=== PATIENT | male | born 1955 | race Caucasian/White ===

== ENCOUNTER 2017-03-03 06:16 | Emergency (ER) | payer BC ==
[2017-03-03 06:29] VITALS: BP 143/86
--- NOTE | 2017-03-03 07:46 | ED ---
Lower Extremity - HPI Summary HPI Summary: 61M presents with right knee pain s/p fall last night. He states he tripped in a hole last night. He states he may have dislocated his knee. He states he has been able to ambulate on it with some pain. He states that he hears some clicking when he walks. He denies any numbness or tingling. He denies any previous injury to the leg. He has been taking ibuprofen for his pain. He states the pain isn't bad unless he moves the leg. - History of Current Complaint Chief Complaint: EDExtremityLower Stated Complaint: FALL//RIGHT KNEE PAIN Time Seen by Provider: 03/03/17 06:35 Pain Intensity: 1 - Allergies/Home Medications Allergies/Adverse Reactions: Allergies Allergy/AdvReac Type Severity Reaction Status Date / Time No Known Allergies Allergy Verified 09/06/13 11:28 PMH/Surg Hx/FS Hx/Imm Hx Endocrine/Hematology History: Reports: Hx Diabetes Denies: Hx Sickle Cell Disease Cardiovascular History: Reports: Hx Hypertension - UNDER CONTROL WITH MEDICATION Respiratory History: Reports: Hx Sleep Apnea GI History: Reports: Hx Irritable Bowel History: Denies: Other Problems/Disorders Musculoskeletal History: Reports: Hx Arthritis - HIPS AND KNEES Sensory History: Reports: Hx Cataracts - RIGHT EYE, Hx Contacts or Glasses - GLASSES Denies: Hx Hearing Aid Opthamlomology History: Reports: Hx Cataracts - RIGHT EYE, Hx Contacts or Glasses - GLASSES Psychiatric History: Reports: Hx Depression - ON MEDICATION, WORKING WELL FOR PATIENT - Surgical History Hx Anesthesia Reactions: No Infectious Disease History: Denies: Traveled Outside the [place] in Last 30 Days - Family History Known Family History: Positive: Cardiac Disease - Social History Alcohol Use: Occasionally Substance Use Type: Reports: None Smoking Status (MU): Former Smoker Review of Systems Negative: Fever Negative: Chest Pain Negative: Shortness Of Breath Positive: Myalgia - right knee pain All Other Systems Reviewed And Are Negative: Yes Physical Exam Triage Information Reviewed: Yes Vital Signs On Initial Exam: Initial Vitals Temp Pulse Resp BP Pulse Ox 99 F 95 20 143/86 98 03/03/17 06:24 03/03/17 06:24 03/03/17 06:24 03/03/17 06:24 03/03/17 06:24 Vital Signs Reviewed: Yes Appearance: Positive: Well-Appearing Skin: Positive: Warm, Dry Head/Face: Positive: Normal Head/Face Inspection Eyes: Positive: Normal, Conjunctiva Clear Respiratory/Lung Sounds: Positive: Clear to Auscultation, Breath Sounds Present Cardiovascular: Positive: Normal, RRR Musculoskeletal: Positive: Limited @ - right knee due to pain, Edema Right - knee, Other - good pulses, capilary refill <2 secs, positive ballotment, negative anteroir drawer Diagnostics - Vital Signs Vital Signs Temp Pulse Resp BP Pulse Ox 03/03/17 06:24 99 F 95 20 143/86 98 - Laboratory Lab Statement: Any lab studies that have been ordered have been reviewed, and results considered in the medical decision making process. - Radiology knee Xray Interpretation: No Acute Changes - IMPRESSION: NO ACUTE OSSEOUS INJURY. IF SYMPTOMS PERSIST, RECOMMEND REPEAT IMAGING. Radiology Interpretation Completed By: Radiologist Lower Extremity Course/Dx - Course Course Of Treatment: 61M presents with right knee pain s/p fall last night. Thought dislocated it but on exam patella is midline. has been taking ibuprofen for the pain. states the joint has been popping. on exam postive ballotment, neg anteroir drawer. xray normal. will place in knee imbolizer and gave crutches and told to follow up with primary as may need to see ortho for possible ligament injury. patient understands and agrees with plan - Diagnoses Differential Diagnosis/HQI/PQRI: Positive: Contusion, Dislocation, Fracture ( Closed), Sprain, Strain Provider Diagnoses: Right knee pain Discharge - Discharge Plan Condition: Good Disposition: HOME Patient Education Materials: Knee Pain (ED) Referrals: Edward Arias MD [Primary Care Provider] - Additional Instructions: Take Tylenol or ibuprofen every 6 hours as needed for pain Apply ice, rest, elevate Keep brace on area Follow up with primary care physician within 5 days if no improvement may need to see ortho Return to ED if develop numbness, tingling, inability to move joint, or any new or worsening symptoms
--- NOTE | 2017-03-03 07:56 | RAD ---
HISTORY: Fall, knee pain COMPARISONS: November 20, 2005 VIEWS: 4, Frontal, lateral, axial, and oblique views of the right knee FINDINGS: BONE DENSITY: Normal. BONES: There is no displaced fracture. JOINTS: There is no arthropathy. There is no suprapatellar joint effusion or lipohemarthrosis. ALIGNMENT: There is no dislocation. SOFT TISSUES: Unremarkable. OTHER FINDINGS: None. IMPRESSION: NO ACUTE OSSEOUS INJURY. IF SYMPTOMS PERSIST, RECOMMEND REPEAT IMAGING.
== END 2017-03-03 08:28 | disposition home or self-care (01) ==
LOC: ED 06:16
DX: M25.561 Pain in right knee (principal)
CPT/HCPCS: 99282

== ENCOUNTER 2017-03-12 09:12 | Inpatient (IN) | payer BC ==
[2017-03-12] MEDS ORDERED: NS 0.9% 1000 ML*IV.FLUID IV ONE (11:14)
[2017-03-12] MEDS ORDERED: Albuterol/Ipratropium NEB.SOL* Albuterol 2.5 MG/Ipratropium 0.5 MG 3 ML INH ONE (11:15)
[2017-03-12] MEDS ORDERED: Azithromycin IV(*) 500 MG in NS 0.9% 250 ML* 250 ML IVPB ONE (11:16)
[2017-03-12 12:28] LABS: Hematocrit 46 % (42-52); Mean Corpuscular HGB Conc 33 g/dl (31-36); Mean Corpuscular Hemoglobin 28 pg (27-31); Mean Corpuscular Volume 87 fL (80-94); Mean Platelet Volume 9 um3 (7.4-10.4); Red Blood Count 5.29 10^6/ul (4.0-5.4); Red Cell Distribution Width 16 % (10.5-15); Venous Bicarbonate HCO3 18.4 mmol/L (24-28); White Blood Count 15.3 10^3/ul (3.5-10.8)
[2017-03-12 12:29] LABS: Add Diff/Slide Review? Slide Review Added; Comments Flag Yes
--- NOTE | 2017-03-12 12:32 | RAD ---
HISTORY: Right lower lobe rhonchi, fever, cough COMPARISONS: July 25, 2015 VIEWS:1: Single frontal portable view of the chest at 12:04 PM FINDINGS: LINES AND TUBES: None. CARDIOMEDIASTINAL SILHOUETTE: The cardiomediastinal silhouette is normal for portable technique. PLEURA: The costophrenic angles are sharp. No pleural abnormalities are noted. LUNG PARENCHYMA: The lung volumes are low. There is confluent alveolar opacification within the right lower lung and left midlung ABDOMEN: The upper abdomen is clear. There is no subphrenic gas. BONES AND SOFT TISSUES: No bone or soft tissue abnormalities are noted. IMPRESSION: MULTIFOCAL CONSOLIDATION. RECOMMEND FOLLOW-UP UNTIL RESOLUTION TO EXCLUDE UNDERLYING PULMONARY PARENCHYMAL PATHOLOGY.
[2017-03-12 12:44] LABS: Albumin 3.4 g/dL (3.2-5.2); BUN/Creatinine Ratio 26.1 (8-20); Calcium 9.9 mg/dL (8.6-10.3); EGFR African American 83.4 (>60); EGFR Non-African American 64.9 (>60); Globulin 4.1 g/dL (2-4); Potassium 4.7 mmol/L (3.5-5.0); Total Bilirubin 0.6 mg/dL (0.2-1.0); Total Protein 7.5 g/dL (6.4-8.9)
[2017-03-12] MEDS ORDERED: Dextrose 50% Syringe 50 ML* 25 GM/50 ML SYRINGE IV PUSH PRN (12:46)
[2017-03-12 12:49] LABS: Troponin I 0.2 ng/mL (<0.04)
[2017-03-12] MEDS ORDERED: Insulin REGULAR(*) 1 UNITS UNIT SUBCUT ONE (12:52)
[2017-03-12] MEDS ORDERED: Aspirin EC TAB* 325 MG PO ONE (12:55)
[2017-03-12 13:05] LABS: Immature Granulocytes 6 % (0-9); Myelocytes % 3 % (0-1); Neutrophil % 83 % (38-83); RBC Morphology Normal (Normal); Toxic Granulation 1+
[2017-03-12] MEDS ORDERED: Perflutren Prot Type A Micr (NF) 3 ML SDV IV ONE (14:05)
[2017-03-12 14:14] LABS: Urine Bacteria Absent (Absent); Urine Bilirubin Negative (Negative); Urine Glucose 3+(>=500 mg/dL) (Negative); Urine Nitrite Negative (Negative)
--- NOTE | 2017-03-12 15:28 | ECHO ---
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 Technical Comments: The study is technically limited due to patient body habitus. Definity was used for endocardial border delineation. Completed at 1515. The study was technically limited due to the patient's inability to lay in the left lateral decubitus position. Left Ventricle: The left ventricular chamber size is normal. Mild concentric left ventricular hypertrophy is observed. Global left ventricular wall motion and contractility are within normal limits. There is normal left ventricular systolic function. The estimated ejection fraction is 55-60%. There is no consistent Doppler evidence of clinically significant diastolic dysfunction. Left Atrium: The left atrial chamber size is normal. Right Ventricle: The right ventricular chamber size and systolic function are within normal limits. Right Atrium: The right atrial cavity size is normal. Aortic Valve: The aortic valve is trileaflet. There is aortic annular calcification.that is mild There is no evidence of aortic regurgitation. There is no evidence of aortic stenosis. Mitral Valve: The mitral valve leaflets appear normal. There is a trace of mitral regurgitation. There is no evidence of mitral stenosis. Tricuspid Valve: The tricuspid valve leaflets are normal. There is trace tricuspid regurgitation. Unable to estimate the right ventricular systolic pressure. Pulmonic Valve: The pulmonic valve appears normal. There is no evidence of pulmonic regurgitation. There is no pulmonic stenosis. Pericardium: There is no significant pericardial effusion. A pericardial fat pad is visualized. Aorta: The ascending aorta is not well visualized. There is no dilatation of the aortic arch. There is no dilation of the aortic root. Pulmonary Artery: The main pulmonary artery is not well visualized. Venous: The venous system is not well visualized. Contrast: Definity was used to optimize study. Intravenous contrast was used to enhance endocardial border definition. Conclusions The left ventricular chamber size is normal. Mild concentric left ventricular hypertrophy is observed. The estimated ejection fraction is 55-60%. There is normal left ventricular systolic function. Global left ventricular wall motion and contractility are within normal limits. The left atrial chamber size is normal. The right ventricular chamber size and systolic function are within normal limits. No significant valvular abnormalities noted. Unable to estimate the right ventricular systolic pressure. No prior studies available for comparison at time of interpretation. Measurements Name Value Normal Range RVIDd (AP) 2D 3.5 cm (0.9 - 2.6) RVDdMajor (2D) 3.6 cm (2.2 - 4.4) RAd ISD 4CH 5 cm (3.4 - 4.9) RA (A4C)W 3.4 cm (2.9 - 4.6) IVSd (2D) 1.3 cm (0.6 - 1) LVPWd (2D) 1.2 cm (0.6 - 1) LVIDd (2D) 4.2 cm (3.6 - 5.4) LVIDs (2D) 3.3 cm - LV FS (2D) 21 % (25 - 45) Aortic Annulus 2 cm (1.4 - 2.6) Ao root diameter (2D) 3.6 cm (2.1 - 3.5) Aortic arch 2.7 cm (1.8 - 3.4) Descending Ao 0.9 cm - LA dimension (AP) 2D 3.8 cm (2.3 - 3.8) LAd ISD 4CH 6.2 cm (2.9 - 5.3) LA ISD 4CH W 4.5 cm (2.5 - 4.5) Name Value Normal Range MV E-wave Vmax 0.9 m/sec - MV deceleration time 108 msec - MV A-wave Vmax 1 m/sec - MV E:A ratio 0.91 ratio - LV septal e' Vmax 0.12 m/sec - LV lateral e' Vmax 0.14 m/sec - LV E:e' septal ratio 7.5 ratio - LV E:e' lateral ratio 6.42 ratio - Name Value Normal Range AV Vmax 2.6 m/sec - AV VTI 39.1 cm - AV peak gradient 27.66 mmHg - AV mean gradient 12.68 mmHg - LVOT Vmax 1.6 m/sec - LVOT VTI 26.1 cm - LVOT peak gradient 10.56 mmHg - LVOT mean gradient 4.67 mmHg - Name Value Normal Range PV Vmax 1 m/sec - PV peak gradient 3.69 mmHg -
[2017-03-12] MEDS: Heparin VIAL(*) 5000 UNITS/ML VIAL (FIVE THOUSAND) SUBCUT SCH ×2 (15:49→22:29)
[2017-03-12] MEDS: NS 0.9% 1000 ML* 1,000 ML IV SCH (15:57)
[2017-03-12] MEDS: Insulin LISPRO* 1 UNITS UNIT SUBCUT SCH (17:47)
--- NOTE | 2017-03-12 19:11 | HP ---
CC: Dr. Arias HISTORY AND PHYSICAL: DATE OF ADMISSION: 03/12/17 PCP: Dr. Arias. CHIEF COMPLAINT: Cough, shortness of breath. HISTORY OF PRESENT ILLNESS: Mr. Fairbanks is a 61-year-old male with past medical history of hypertens ion; diabetes; VALENTINO, on CPAP, who presents to the hospital with cough, sweats, nausea. 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 He states he came to the [facility] at that point. In the emergency department, had a knee x-ray that showed no fracture and was se nt home. He states that during the hospital, he started to feel unwell and then when he got home, h e became worse. He states he felt nausea, headache, sweats. He has not taken his temperature at ho me, but he has reported shaking chills as well. He has felt progressively weak and has been coughin g. He states he has had very little p.o. intake. He has been trying to drink a little bit. He has had almost no food in the past week and a half. He reports no appetite. He states his cough is pr oductive of sputum, sometimes it is yellow, other times, he has noticed a blood tinge and he states one time there was some hard black sputum. He reports shortness of breath as well and has been havin g increasing dyspnea on exertion. He reports chest pain, but only with coughing. He has had nausea , but no emesis. Denies any diarrhea or constipation. Reports some vague periumbilical pain that t hat seems to have come and go. Due to his progressive symptoms, he decided to come to the hospital today. PAST MEDICAL HISTORY: Hypertension; diabetes; VALENTINO, on CPAP; anxiety. PAST SURGICAL HISTORY: Right cataract removal. HOME MEDICATIONS: Doses need to be confirmed. The patient is on: 1. Metformin. 2. Lisinopril. 3. Hydrocodone/acetaminophen. 4. Hydrochlorothiazide. 5. Glipizide. 6. Paxil. ALLERGIES: The patient reports no known drug allergies. FAMILY HISTORY: Significant for father with macular degeneration, mother with COPD. SOCIAL HISTORY: The patient is a former [id number]-dajd smoker, quit in 1980. The patient reports hav ing 1 to 2 drinks every other night. Denies any illicit drug use. Lives at home with his girlfrien Alicia steele. PHYSICAL EXAMINATION GENERAL: The patient is a middle-aged, male, lying in bed, in mild respiratory distress. VITAL SIGNS: On admission, temperature 96.5, heart rate of 124, respiratory rate of 20, O2 saturati on 87% on room air, blood pressure 159/62. HEENT: Pupils equal, round, reactive to light and accommodation. Anicteric sclerae. Moist mucous membranes. LUNGS: With good air movement bilaterally, rales in bilateral lower lobes. No rhonchi appreciated. Tachypnea. CARDIOVASCULAR: Tachycardic. No murmurs, gallops, or rubs. ABDOMEN: Soft, nondistended, and mild tenderness to palpation diffusely. EXTREMITIES: No cyanosis, clubbing, or edema. NEURO: The patient is alert and oriented x3. No focal neurological deficits. SKIN: The patient with ecchymosis over the medial aspect of the right knee. DIAGNOSTIC STUDIES/LAB DATA: White blood cell count of 15.3, hematocrit of 46, platelets of 262. INR of 1.1. Sodium 127, potassium 4.7, chloride 92, carbon dioxide of 20, BUN of 30, creatinine of 1.15, glucose of 350. LFTs within normal limits. Troponin of 0.20. EKG personally reviewed shows sinus tachycardia, right bundle branch block. Chest x-ray shows multifocal consolidation. Lactic acid is pending at this time. ASSESSMENT AND PLAN: Sepsis secondary to community-acquired pneumonia in a 61-year- old male with p ast medical history of hypertension; diabetes; obstructive sleep apnea, on CPAP. 1. Sepsis with acute hypoxic respiratory failure. The patient is requiring 3 L of oxygen. He has consolidation on chest x-ray. He has received ceftriaxone and azithromycin in the emergency departm ent. We will continue this for now. His lactic acid is pending at this time. We will check urine strep and legionella antigens. Sputum cultures ordered and pending. Flu swab is also pending at th is time. The patient received a liter of IV fluids in the emergency department. We will continue 1 25 cc per hour. We will keep a close eye on the patient's heart rate. 2. Troponin elevation. Likely demand mediated due to the patient's sepsis. We will continue to tr end for now. I have ordered any echocardiogram to assess for any wall motion abnormalities. We susie l start the patient on a daily aspirin for now just in case, although it seems most likely this is d emand mediated. 3. Diabetes. Blood glucoses are elevated right now at 350. He has a mild anion gap; however, this could be due to lactic acidosis, this has not returned yet. We will give the patient 10 units of r egular insulin for now and we will keep a close eye on his blood sugars. We will continue Humalog i nsulin sliding scale. Hold his home metformin and glipizide for now. 4. Hypertension. Blood pressures are slightly in the high side rate now, but for the moment, we wi ll hold his home lisinopril and HCTZ. 5. DVT prophylaxis. Heparin subcu. 6. Code status. The patient is a full code. The patient's surrogate decision maker is his girlfri end, Alicia Dhillon, phone #[phone]. TIME SPENT: Total time spent on this admission 40 minutes, more than half the time spent face-to-fa ce with the patient in counseling and coordinating care. [id number]/CPS #: [id number]
[2017-03-12] MEDS: Acetaminophen TAB* 325 MG PO PRN (22:28)
[2017-03-13] MEDS: NS 0.9% 1000 ML* 1,000 ML IV SCH (05:28)
[2017-03-13] MEDS: Heparin VIAL(*) 5000 UNITS/ML VIAL (FIVE THOUSAND) SUBCUT SCH ×3 (05:30→22:27)
[2017-03-13 06:54] LABS: Hematocrit 42 % (42-52); Hemoglobin 13.8 g/dl (14.0-18.0); Mean Corpuscular HGB Conc 33 g/dl (31-36); Mean Corpuscular Hemoglobin 29 pg (27-31); Mean Corpuscular Volume 87 fL (80-94); Mean Platelet Volume 9 um3 (7.4-10.4); Red Blood Count 4.83 10^6/ul (4.0-5.4); Red Cell Distribution Width 16 % (10.5-15); White Blood Count 12.4 10^3/ul (3.5-10.8)
[2017-03-13 06:56] LABS: BUN/Creatinine Ratio 29.5 (8-20); Calcium 8.8 mg/dL (8.6-10.3); EGFR African American 113.6 (>60); EGFR Non-African American 88.3 (>60); Potassium 4.3 mmol/L (3.5-5.0)
[2017-03-13 06:58] LABS: Add Diff/Slide Review? Slide Review Added; Comments Flag Yes
--- NOTE | 2017-03-13 07:31 | PN ---
Subjective Date of Service: 03/13/17 Interval History: Fever overnight, tachycardia improved, remains on 6L. Says he is feeling a bit better this morning. Less cough, did feel febrile overnight. Breathing easier, currently on CPAP. Says he and his GF were down in a campground in [place], [place] last week, swam in public pool. Family History: Unchanged from Admission Social History: Unchanged from Admission Past Medical History: Unchanged from Admission Objective Active Medications: Acetaminophen (Tylenol Tab*) 650 mg PO Q4H PRN Aspirin (Aspirin Low Dose Tab*) 81 mg PO DAILY JEANETH Dextrose (D50w Syringe 50 Ml*) 12.5 gm IV PUSH .FOR FS < 60 - SS PRN Heparin Sodium (Porcine) (Heparin Vial(*)) 5,000 units SUBCUT Q8HR JEANETH Sodium Chloride (Ns 0.9% 1000 Ml*) 1,000 mls @ 125 mls/hr IV PER RATE JEANETH Ceftriaxone Sodium 1,000 mg/ (Sodium Chloride) 50 mls @ 200 mls/hr IVPB Q24H JEANETH Azithromycin 500 mg/ Sodium (Chloride) 250 mls @ 250 mls/hr IVPB Q24H JEANETH Insulin Human Lispro (Humalog*) 0 - 15 units SUBCUT AC JEANETH Vital Signs 03/12/17 03/12/17 03/12/17 14:00 14:30 15:00 Temperature Pulse Rate 121 119 119 Respiratory 26 38 25 Rate Blood Pressure 164/84 184/94 (mmHg) O2 Sat by Pulse 89 92 95 Oximetry 03/12/17 03/12/17 03/12/17 15:47 15:48 20:00 Temperature 98.3 F Pulse Rate 122 Respiratory 22 22 34 Rate Blood Pressure 177/90 (mmHg) O2 Sat by Pulse 91 94 Oximetry 03/12/17 03/13/17 03/13/17 20:30 00:09 04:38 Temperature 102.4 F 99.1 F 98.4 F Pulse Rate 113 94 95 Respiratory 34 20 20 Rate Blood Pressure 144/79 153/82 152/94 (mmHg) O2 Sat by Pulse 95 94 96 Oximetry Oxygen Devices in Use Now: CPAP/BiPAP Appearance: Middle-aged, M, laying in bed in NAD Eyes: No Scleral Icterus Ears/Nose/Mouth/Throat: Mucous Membranes Moist Neck: NL Appearance and Movements; NL JVP, Trachea Midline Respiratory: Symmetrical Chest Expansion and Respiratory Effort, - - Mild rales in bases, otherwise clear Cardiovascular: NL Sounds; No Murmurs; No JVD, RRR Abdominal: NL Sounds; No Tenderness; No Distention Lymphatic: No Cervical Adenopathy Extremities: No Edema Skin: No Rash or Ulcers Neurological: Alert and Oriented x 3 Result Diagrams: 03/13/17 06:11 03/13/17 06:11 Microbiology and Other Data: Microbiology 03/12/17 13:55 Legionella Urinary Antigen - Final Urine Positive Legionella Antigen Streptococcus pneumoniae Ag Screen - Final Negative S. pneumo Antigen Assess/Plan/Problems-Billing Assessment: Sepsis, acute hypoxic respiratory failure 2/2 Legionella PNA in a 61 yo M with hx of HTN, DM, VALENTINO on CPAP - Patient Problems (1) Acute respiratory failure with hypoxia Current Visit: Yes Comment: 2/2 PNA, wean O2 as able (2) Legionella pneumonia Current Visit: Yes Comment: sepsis. Positive urine antigen. Will switch to Levaquin monotherapy. Leukocytosis improving. Continue to wean O2 as able. (3) Elevated troponin Current Visit: Yes Comment: Resolved. Likely demand mediated. No WMA on echo. Stop ASA (4) Diabetes Current Visit: Yes Comment: BGs elevated. Will start Lantus 12 units daily. Continue HISS. (5) HTN (hypertension) Current Visit: Yes Comment: Resume home Lisinopril. Hold HCTZ. (6) DVT prophylaxis Current Visit: Yes Comment: HSQ Status and Disposition: Inpatient for pneumonia, hypoxic respiratory failure
[2017-03-13] MEDS ORDERED: Insulin GLARGINE(*) 1 UNITS UNIT SUBCUT SCH (08:00)
[2017-03-13] MEDS: Acetaminophen TAB* 325 MG PO PRN ×2 (08:37→23:12)
[2017-03-13] MEDS: Insulin LISPRO* 1 UNITS UNIT SUBCUT SCH ×3 (08:37→17:10)
[2017-03-13] MEDS: Tamsulosin CAP* 0.4 MG PO SCH (08:37)
[2017-03-13] MEDS: Lisinopril TAB* 10 MG PO SCH (08:37)
[2017-03-13] MEDS: Levofloxacin 750 MG IVPREMIX(* 750 MG/150 ML BAG IVPB SCH (08:38)
[2017-03-13] MEDS ORDERED: Aspirin Low Dose CHEW TAB* 81 MG PO SCH (09:00)
[2017-03-13] MEDS: Morphine INJ* 4 MG/ML 1 ML SYRINGE IV PRN ×2 (11:57→17:10)
[2017-03-13] MEDS: Ondansetron INJ* 2 MG/ML VIAL IV PRN (11:57)
[2017-03-13] MEDS ORDERED: Azithromycin IV(*) 500 MG in NS 0.9% 250 ML* 250 ML IVPB SCH (12:00)
[2017-03-13] MEDS ORDERED: cefTRIAXone VIAL(*) 1,000 MG in NS 0.9% 50 ML* 50 ML IVPB SCH (13:00)
[2017-03-13] MEDS ORDERED: Insulin LISPRO* 1 UNITS UNIT SUBCUT ONE (22:20)
[2017-03-13] MEDS: PARoxetine HCL TAB* 40 MG PO SCH (22:26)
[2017-03-14] MEDS: Heparin VIAL(*) 5000 UNITS/ML VIAL (FIVE THOUSAND) SUBCUT SCH ×3 (05:28→21:19)
[2017-03-14] MEDS: Levofloxacin 750 MG IVPREMIX(* 750 MG/150 ML BAG IVPB SCH (07:59)
[2017-03-14] MEDS: Insulin LISPRO* 1 UNITS UNIT SUBCUT SCH ×3 (08:00→17:23)
[2017-03-14] MEDS: Lisinopril TAB* 10 MG PO SCH (08:01)
--- NOTE | 2017-03-14 08:07 | PN ---
Subjective Date of Service: 03/14/17 Interval History: Patient seen this morning. Reports overall he thinks he is improving. Still with headache, fatigue but improving. Cough resolving. Denies SOB at rest, still some with exertion. Still having loose stools. Family History: Unchanged from Admission Social History: Unchanged from Admission Past Medical History: Unchanged from Admission Objective Active Medications: Acetaminophen (Tylenol Tab*) 650 mg PO Q4H PRN Dextrose (D50w Syringe 50 Ml*) 12.5 gm IV PUSH .FOR FS < 60 - SS PRN Heparin Sodium (Porcine) (Heparin Vial(*)) 5,000 units SUBCUT Q8HR JEANETH Lactated Ringer's (Lactated Ringers 1000 Ml Bag*) 1,000 mls @ 125 mls/hr IV PER RATE JEANETH Levofloxacin/Dextrose (Levaquin 750 Mg Ivpremix(*)) 750 mg in 150 mls @ 100 mls /hr IVPB Q24H JEANETH Insulin Glargine (Lantus(*)) 20 units SUBCUT Q24H JEANETH Insulin Human Lispro (Humalog*) 0 - 15 units SUBCUT AC JEANETH Lisinopril (Prinivil Tab*) 40 mg PO DAILY JEANETH Morphine Sulfate (Morphine Inj (Syringe)*) 4 mg IV Q4H PRN Ondansetron HCl (Zofran Inj*) 4 mg IV Q4H PRN Paroxetine HCl (Paxil Tab*) 40 mg PO BEDTIME JEANETH Tamsulosin HCl (Flomax Cap*) 0.4 mg PO DAILY [facility] Vital Signs 03/13/17 03/13/17 03/13/17 08:09 11:57 12:12 Temperature 98.1 F Pulse Rate 100 94 Respiratory 24 20 22 Rate Blood Pressure 152/89 140/69 (mmHg) O2 Sat by Pulse 91 96 Oximetry 03/13/17 03/13/17 03/13/17 12:57 15:21 17:10 Temperature 98.5 F Pulse Rate 98 Respiratory 18 20 20 Rate Blood Pressure 151/89 (mmHg) O2 Sat by Pulse 92 Oximetry 03/13/17 03/13/17 03/13/17 18:10 20:00 20:03 Temperature 98.4 F Pulse Rate 98 Respiratory 18 20 20 Rate Blood Pressure 158/88 (mmHg) O2 Sat by Pulse 100 100 Oximetry 03/13/17 03/14/17 23:41 03:25 Temperature 97.8 F 97.6 F Pulse Rate 94 92 Respiratory 16 20 Rate Blood Pressure 169/95 164/98 (mmHg) O2 Sat by Pulse 96 95 Oximetry Oxygen Devices in Use Now: CPAP/BiPAP Appearance: Middle-aged, M, laying in bed in NAD Eyes: No Scleral Icterus Ears/Nose/Mouth/Throat: - - Dry MM Neck: NL Appearance and Movements; NL JVP Respiratory: Symmetrical Chest Expansion and Respiratory Effort, - - Minimal lower lung field rales B/L Cardiovascular: NL Sounds; No Murmurs; No JVD, RRR Abdominal: NL Sounds; No Tenderness; No Distention Lymphatic: No Cervical Adenopathy Extremities: No Edema Skin: No Rash or Ulcers Neurological: Alert and Oriented x 3 Result Diagrams: 03/13/17 06:11 03/13/17 06:11 Assess/Plan/Problems-Billing Assessment: Sepsis, acute hypoxic respiratory failure 2/2 Legionella PNA in a 61 yo M with hx of HTN, DM, VALENTINO on CPAP - Patient Problems (1) Acute respiratory failure with hypoxia Current Visit: Yes Comment: 2/2 PNA, wean O2 as able (2) Legionella pneumonia Current Visit: Yes Comment: sepsis. Positive urine antigen. Continue Levaquin. CBC pending. Continue to wean O2 as able. See what he is satting off CPAP. (3) Elevated troponin Current Visit: Yes Comment: Resolved. Likely demand mediated. No WMA on echo. No events on tele, D/C. (4) Diabetes Current Visit: Yes Comment: BGs elevated still, increase Lantus to 20 units daily. Continue HISS. (5) HTN (hypertension) Current Visit: Yes Comment: Continue home Lisinopril. Hold HCTZ. (6) DVT prophylaxis Current Visit: Yes Comment: HSQ Status and Disposition: Inpatient for pneumonia, hypoxic respiratory failure
[2017-03-14] MEDS: Insulin GLARGINE(*) 1 UNITS UNIT SUBCUT SCH (08:28)
[2017-03-14] MEDS: Tamsulosin CAP* 0.4 MG PO SCH (08:29)
[2017-03-14 09:26] LABS: Hematocrit 40 % (42-52); Hemoglobin 13.1 g/dl (14.0-18.0); Mean Corpuscular HGB Conc 33 g/dl (31-36); Mean Corpuscular Hemoglobin 28 pg (27-31); Mean Corpuscular Volume 85 fL (80-94); Mean Platelet Volume 9 um3 (7.4-10.4); Red Blood Count 4.64 10^6/ul (4.0-5.4); Red Cell Distribution Width 16 % (10.5-15); White Blood Count 7.1 10^3/ul (3.5-10.8)
[2017-03-14 09:27] LABS: Add Diff/Slide Review? Manual Diff Added; Comments Flag Yes
[2017-03-14 09:45] LABS: Eosinophils % 2 % (0-6); Immature Granulocytes 2 % (0-9); Neutrophil % 81 % (38-83); RBC Morphology Normal (Normal)
[2017-03-14 10:04] LABS: BUN/Creatinine Ratio 27.8 (8-20); Calcium 8.6 mg/dL (8.6-10.3); EGFR African American 143.2 (>60); EGFR Non-African American 111.4 (>60)
[2017-03-14 10:35] LABS: Potassium 5.4 mmol/L (3.5-5.0)
[2017-03-14] MEDS: Ondansetron INJ* 2 MG/ML VIAL IV PRN (11:52)
[2017-03-14] MEDS: PARoxetine HCL TAB* 40 MG PO SCH (21:19)
[2017-03-15] MEDS ORDERED: Insulin LISPRO* 1 UNITS UNIT SUBCUT ONE (01:50)
[2017-03-15] MEDS: Heparin VIAL(*) 5000 UNITS/ML VIAL (FIVE THOUSAND) SUBCUT SCH ×3 (05:13→21:36)
[2017-03-15] MEDS: Levofloxacin 750 MG IVPREMIX(* 750 MG/150 ML BAG IVPB SCH (07:56)
[2017-03-15] MEDS: Tamsulosin CAP* 0.4 MG PO SCH (07:56)
[2017-03-15] MEDS: Lisinopril TAB* 10 MG PO SCH (07:56)
[2017-03-15] MEDS: Insulin LISPRO* 1 UNITS UNIT SUBCUT SCH ×3 (07:57→18:10)
[2017-03-15] MEDS: Insulin GLARGINE(*) 1 UNITS UNIT SUBCUT SCH (07:58)
[2017-03-15 08:17] LABS: BUN/Creatinine Ratio 23.3 (8-20); Calcium 8.5 mg/dL (8.6-10.3); EGFR African American 140.9 (>60); EGFR Non-African American 109.6 (>60); Potassium 4.4 mmol/L (3.5-5.0)
--- NOTE | 2017-03-15 10:12 | PN ---
Subjective Date of Service: 03/15/17 Interval History: Patient seen this morning. Overall says he is feeling better. Was off O2 when I saw him but stated he had just taken it off, has been on 4L. Minimal cough. Appetite still poor but slowly returning. Family History: Unchanged from Admission Social History: Unchanged from Admission Past Medical History: Unchanged from Admission Objective Active Medications: Acetaminophen (Tylenol Tab*) 650 mg PO Q4H PRN Dextrose (D50w Syringe 50 Ml*) 12.5 gm IV PUSH .FOR FS < 60 - SS PRN Heparin Sodium (Porcine) (Heparin Vial(*)) 5,000 units SUBCUT Q8HR JEANETH Lactated Ringer's (Lactated Ringers 1000 Ml Bag*) 1,000 mls @ 125 mls/hr IV PER RATE JEANETH Levofloxacin/Dextrose (Levaquin 750 Mg Ivpremix(*)) 750 mg in 150 mls @ 100 mls /hr IVPB Q24H JEANETH Insulin Glargine (Lantus(*)) 20 units SUBCUT Q24H JEANETH Insulin Human Lispro (Humalog*) 0 - 15 units SUBCUT AC JEANETH Lisinopril (Prinivil Tab*) 40 mg PO DAILY JEANETH Morphine Sulfate (Morphine Inj (Syringe)*) 4 mg IV Q4H PRN Ondansetron HCl (Zofran Inj*) 4 mg IV Q4H PRN Paroxetine HCl (Paxil Tab*) 40 mg PO BEDTIME JEANETH Tamsulosin HCl (Flomax Cap*) 0.4 mg PO DAILY [facility] Vital Signs 03/14/17 03/14/17 03/14/17 15:32 20:00 23:51 Temperature 97.5 F 97.5 F Pulse Rate 97 93 Respiratory 18 18 16 Rate Blood Pressure 145/81 157/89 (mmHg) O2 Sat by Pulse 97 97 93 Oximetry 03/15/17 07:39 Temperature 98.8 F Pulse Rate 91 Respiratory 16 Rate Blood Pressure 152/86 (mmHg) O2 Sat by Pulse 95 Oximetry Oxygen Devices in Use Now: Nasal Cannula Appearance: Middle-aged, M, sitting in chair in NAD Eyes: No Scleral Icterus Ears/Nose/Mouth/Throat: Mucous Membranes Moist Neck: NL Appearance and Movements; NL JVP Respiratory: Symmetrical Chest Expansion and Respiratory Effort, - - LLL rales, diminished BS in RLL field Cardiovascular: NL Sounds; No Murmurs; No JVD, RRR Abdominal: NL Sounds; No Tenderness; No Distention Lymphatic: No Cervical Adenopathy Extremities: - - R knee with ecchymosis on medial aspect, some asymmetry in quad muscles B/L, difficulty with extension Skin: No Rash or Ulcers Neurological: Alert and Oriented x 3 Result Diagrams: 03/14/17 09:08 03/15/17 07:26 Assess/Plan/Problems-Billing Assessment: Sepsis, acute hypoxic respiratory failure 2/2 Legionella PNA in a 61 yo M with hx of HTN, DM, VALENTINO on CPAP - Patient Problems (1) Acute respiratory failure with hypoxia Current Visit: Yes Comment: 2/2 PNA, wean O2 as able (2) Legionella pneumonia Current Visit: Yes Comment: sepsis. Positive urine antigen. Continue Levaquin (Day 4 of ABx). Continue to wean O2 as able, has been on 4L. Will d/c IVF today. (3) Elevated troponin Current Visit: Yes Comment: Resolved. Likely demand mediated. No WMA on echo. No events on tele, D/C. (4) Diabetes Current Visit: Yes Comment: BGs elevated still, resume home Metformin. Continue Lantus to 20 units daily. Continue HISS. Hold on Glipizide until taking more reliable PO. (5) HTN (hypertension) Current Visit: Yes Comment: Continue home Lisinopril. Hold HCTZ. (6) DVT prophylaxis Current Visit: Yes Comment: HSQ Status and Disposition: Inpatient for pneumonia, hypoxic respiratory failure
[2017-03-15] MEDS ORDERED: metFORMIN* 850 MG TAB PO SCH (11:00)
[2017-03-15] MEDS ORDERED: Hemorrhoidal OINT PR PRN (12:25)
[2017-03-15] MEDS: metFORMIN* 850 MG TAB PO SCH ×2 (12:33→18:10)
[2017-03-15] MEDS: Acetaminophen TAB* 325 MG PO PRN (14:09)
--- NOTE | 2017-03-15 14:29 | PN ---
Progress Note - Progress Note SOAP: Subjective: []See dictated consult: Patient will fall and twisting of the right knee . Xrays negative for bony abnormality. He heard a pop at the time of his injury and has been unable to actively extend right knee since. Pain is minimal at this time. Objective: []Right knee: Moderate ecchymosis distal quad and medial knee. minimal tenderness medially. +palpable defect of the distal quadriceps tendon. He is unable to do an active straight leg raise or actively extend his knee. neuro intact distally Calf is non tender xays of knee 03/03/17 negative for fracture unable to obtain MRI on this admission Assessment: []Quadriceps tendon rupture right knee based on clinical evaluation Plan: []Discharge when medically stable Straight knee immobilizer WBAT RLE MRI right knee to evaluate extent of Quadriceps rupture follow up with Dr. Eduardo after MRI Surgical repair to be scheduled when medically stable
[2017-03-15] MEDS: PARoxetine HCL TAB* 40 MG PO SCH (21:36)
--- NOTE | 2017-03-15 21:52 | CONS ---
ORTHOPEDIC CONSULTATION: DATE OF ADMISSION: 03/12/17 DATE OF CONSULTATION: ATTENDING PROVIDER: Yannick Carlton MD ATTENDING ORTHOPEDIC SURGEON: Jose Eduardo MD CHIEF COMPLAINT: Right knee pain, inability to actively extend knee. HISTORY OF PRESENT ILLNESS: The patient is 61-year-old male with a past history of hypertension, diabetes, obstructive sleep apnea, and recent diagnosis of legionella pneumonia, was admitted for the above on 03/12/17. The patient was working on his truck on 03/03/17 when slipped and fell twisting the right knee. He states he heard an audible pop and had pain to the distal medial aspect of his thigh. He has had ongoing difficulty with motion of his knee with noted swelling and ecchymosis to the medial aspect of the knee. He has been improving on the antibiotics. However, according to Dr. Carlton, he will require about 2 more weeks of oral antibiotics therapy for his pneumonia. Apparently, due to his current admission diagnosis, MRI of the knee cannot be obtained at this hospital admission. PAST MEDICAL HISTORY: As above, hypertension; diabetes; obstructive sleep apnea , on CPAP; anxiety. PAST SURGICAL HISTORY: He has had cataract surgery on the right eye. HOME MEDICATIONS: 1. Metformin. 2. Lisinopril. 3. Hydrochlorothiazide. 4. Glipizide. 5. Paxil. 6. He is also currently on levofloxacin for his pneumonia. 7. Currently, on heparin for DVT prophylaxis. ALLERGIES: No known drug allergies. FAMILY HISTORY: Mother with a history of COPD. Father with macular degeneration. SOCIAL HISTORY: The patient quit smoking in 1980. He does drink 1 to 2 alcoholic beverages every night. He denies use of illicit drugs and lives with his girlfriend. PHYSICAL EXAM: Vital Signs: Stable. He is afebrile. Most recent labs show his white count to be down to 7.1, hemoglobin 13.1, hematocrit 40, APTT is 31.3 , INR 1.10. Plain films of the right knee obtained revealed no obvious bony abnormality, fracture, dislocation. X-ray that were done on 03/03/17. Orthopedic physical examination, the patient is a pleasant and cooperative. He is alert and oriented x3, sitting in recliner chair, out of bed. He denies current shortness of breath, chest pain, or palpitations. Examination limited to the right lower extremity reveals moderate ecchymosis to the medial aspect of the right knee. There is no calf tenderness. His gross neurovascular status is intact. He has active dorsiflexion and plantar flexion of the ankle. He has active flexion of the knee, but does not have active extension. He is unable to perform and active straight leg raise on the right. He has full active straight leg raise. Flexion and extension of the left knee. IMPRESSION: Quadriceps tendon rupture based on clinical exam of the right knee. PLAN: I spoke with Dr. Carlton again who states he will likely be discharged tomorrow, 03/16/17, to home with an additional 10 to 14 days of oral antibiotics for his current pneumonia. The patient does have a postoperative knee mobilizer, which his significant other will bring in today. I recommend he wear this for ambulation and may bear weight as tolerated on the right lower extremity with the brace. The patient will ultimately need an MRI to further evaluate the extent of his tear and likely surgical repair will be necessary. I will discuss the current case with Dr. Eduardo and it will need to be coordinated for him to have an MRI of his right as an outpatient with evaluation and followup with Dr. Eduardo and likely surgical repair of the tendon. CESAR LEE We will coordinate early MRI and follow-up, as quadriceps tendon repairs have best results if repaired surgically acutely. We will consult the patient's PCP and anesthesia regarding appropriate timing in the setting [place] [id number]/[facility] #: [id number] HOSPITALNoah
[2017-03-16] MEDS: Heparin VIAL(*) 5000 UNITS/ML VIAL (FIVE THOUSAND) SUBCUT SCH ×2 (06:50→15:30)
[2017-03-16 07:52] LABS: BUN/Creatinine Ratio 18.7 (8-20); Blood Urea Nitrogen 14 mg/dL (6-24); CO2 Carbon Dioxide 21 mmol/L (22-32); Calcium 8.4 mg/dL (8.6-10.3); Chloride 100 mmol/L (101-111); EGFR African American 136.6 (>60); EGFR Non-African American 106.2 (>60); Glucose 276 mg/dL (70-100); Sodium 130 mmol/L (133-145)
[2017-03-16] MEDS: Insulin GLARGINE(*) 1 UNITS UNIT SUBCUT SCH (08:55)
[2017-03-16] MEDS: Insulin LISPRO* 1 UNITS UNIT SUBCUT SCH ×3 (08:56→17:46)
[2017-03-16] MEDS ORDERED: Pneumococcal Vac Polyvalent* 0.5 ML VIAL IM ONE (09:00)
[2017-03-16] MEDS: Levofloxacin 750 MG IVPREMIX(* 750 MG/150 ML BAG IVPB SCH (09:20)
[2017-03-16] MEDS: Tamsulosin CAP* 0.4 MG PO SCH (09:23)
[2017-03-16] MEDS: Lisinopril TAB* 10 MG PO SCH (09:23)
[2017-03-16] MEDS: metFORMIN* 850 MG TAB PO SCH ×3 (09:23→17:45)
--- NOTE | 2017-03-16 14:07 | PN ---
Progress Note - Progress Note SOAP: Subjective: []Patient seen OOB getting dressed. Hoping to be discharged later today. Knee minimally painful. "It just does not work". Objective: [] Vital Signs Temp 97.8 F 03/16/17 07:37 Pulse 95 03/16/17 07:37 Resp 14 03/16/17 08:00 BP 136/95 03/16/17 07:37 Pulse Ox 96 03/16/17 08:00 Intake & Output 03/15/17 03/16/17 03/16/17 18:59 06:59 18:59 Intake Total 1452 0 Output Total 300 Balance 1152 0 Intake: IV Fluids 942 LR 942 IVPB 150 ABX - LEVOFLOXACIN 150 Oral 360 0 Output: Urine 300 Other: # Bowel Movements 2 # Voids 2 Right knee ecchymosis and defect distal quad unchanged, non tender, calf soft and non tender Knee immobilizer placed on Right LE Assessment: [] distal quadriceps tendon rupture right knee, MRI pending Plan: []Patient to be discharged by medical service today Patient to contact PCP/ Dr. Eduardo office for MRI right knee and follow up with Dr. Eduardo within 1 week. Will need surgical repair of the right quad tendon as an outpatient May WBAT RLE with brace in place
[2017-03-16 16:10] VITALS: BP 132/77
--- NOTE | 2017-03-17 14:35 | DS ---
DISCHARGE SUMMARY: DATE OF ADMISSION: 03/12/17 DATE OF DISCHARGE: 03/16/17 ADMISSION DIAGNOSES: 1. Sepsis with acute hypoxic respiratory failure. 2. Troponin elevation. 3. Diabetes. 4. Hypertension. DISCHARGE DIAGNOSES: 1. Sepsis with acute hypoxic respiratory failure. 2. Troponin elevation. 3. Diabetes. 4. Hypertension. 5. Legionella pneumonia. HOSPITAL COURSE: The patient is a 61-year-old gentleman, who presented to [facility] with cough and shortness of breath. Please see H and P for further details. The patient was admitted with respiratory failure, requiring significant supplemental oxygen at 6 L nasal cannula. Eventually, they were able to wean him off oxygen through his hospital course. His urine legionella antigen came back positive. He was switched from his initial antibiotic therapy to Levaquin. His troponin which was initially slightly elevated at 0.20, came down to 0.01, and his echo showed no wall motion abnormalities. His sugars were quite elevated while here and Lantus insulin was initiated. It did come down some- what to below 200 and he notes that he has been high for some time but has not followed up with his golf ball winder, Dr. Mendez. By 03/16/17, the patient felt considerably better and was anxious to go home. It should also be noted that on March 15, he was seen in consult by Ortho because of significant pain in his right knee. He was given a knee immobilizer and told to follow up with Ortho in 1 to 2 weeks. PHYSICAL EXAMINATION: On the date of discharge, well-developed, well-nourished gentleman, sitting up in bed, in no acute distress. Vital Signs: Blood pressure 132/77, pulse ox 94% on room air, respiratory rate 16 breaths per minute, heart rate 112 beats per minute, temperature 98.6 degrees. HEENT: Normocephalic, atraumatic. Pupils equal, round, and reactive to light. Moist mucous membranes. Neck: Supple. No JVD, bruits, palpable thyroid, or lymphadenopathy. Chest: Clear to auscultation. Cardiovascular Exam: S1, S2 appreciated. Abdominal Exam: Positive bowel sounds in all 4 quadrants. Soft, nontender, nondistended. No hepatosplenomegaly. Extremities: No cyanosis, clubbing, or edema. +2 pulses bilaterally. Neuro: Alert and oriented x3. Moves all extremities. Skin: No rashes or abnormalities. STUDIES DONE WHILE IN THE HOSPITAL: Chest x-ray, 03/12/17, impression: Multifocal consolidation. Recommend followup until resolution to exclude underlying pulmonary parenchymal pathology. Transthoracic echocardiogram: Left ventricle chamber size is normal, mild concentric left ventricular hypertrophy observed. Estimated ejection fraction is 55% to 60%. Global left ventricular wall motion and contractility with normal limits. Left atrial chamber size is normal. Right ventricular chamber size and systolic function are within normal limits. MEDICATIONS ON DISCHARGE: 1. Flomax 0.4 mg daily. 2. Paroxetine 40 mg at bedtime. 3. [place] 5/325 one tablet 3 times a day as needed. 4. Glipizide 10 mg twice daily. 5. Sildenafil 50 mg daily as needed. 6. Lisinopril 40 mg daily. 7. Hydrochlorothiazide 12.5 mg daily. 8. Metformin 2500 mg in the evening 9. Levaquin 750 mg daily for 5 more days. DISCHARGE PLAN: The patient will be discharged to home. He will follow with his PCP and Endocrinology within 1 week. We were going to give the patient Lantus insulin at home, but he wanted to follow up with Endocrinology to get their input to see what else he might be able to be placed on. follows up with them within 1 week. He will also follow up with Orthopedics within 1 to 2 weeks concerning his right knee. He will also need to follow up x-ray until resolution to make sure there is no pulmonary parenchymal pathology. TIME SPENT: Over 50 minutes was spent on this discharge, more than 35 minutes of which was spent in direct [id number] contact with the patient in evaluation , physical exam, counseling, and coordination of care. CC: Dr. Edward Arias; Dr. Mendez * [id number]/[facility] #: [id number] [facility] SYSTEMNo[facility]
== END 2017-03-16 18:33 | disposition home or self-care (01) | DRG 720 ==
LOC: ED 09:12 → MEDTELE 13:53
PROVIDERS: ADMIT Hospitalist; ATTEND Internal Medicine
DX: A41.9 Sepsis, unspecified organism (principal); J96.01 Acute respiratory failure with hypoxia; A48.1 Legionnaires' disease; R65.20 Severe sepsis without septic shock; R74.8 Abnormal levels of other serum enzymes; E11.65 Type 2 diabetes mellitus with hyperglycemia; I10 Essential (primary) hypertension; S76.111A Strain of right quadriceps muscle, fascia and tendon, initial encounter; W19.XXXA Unspecified fall, initial encounter; Y92.9 Unspecified place or not applicable; G47.33 Obstructive sleep apnea (adult) (pediatric); Z79.84 Long term (current) use of oral hypoglycemic drugs; Z79.899 Other long term (current) drug therapy; Z82.5 Family history of asthma and other chronic lower respiratory diseases; Z87.891 Personal history of nicotine dependence
CPT/HCPCS: 36415; 71010; 80048; 80053; 81003; 81015; 82803; 83605; 84484; 85025; 85610; 85730; 87040; 87070; 87205; 87502; 87899; 90732; 93005; 93306; 94640; 94660; 94760; A9270-GY; C8929; J0456; J0696; J1644; J2270; J2405; Q9956

== ENCOUNTER 2017-07-09 12:07 | Emergency (ER) | payer BC ==
[2017-07-09 13:01] VITALS: BP 129/71
--- NOTE | 2017-07-09 18:45 | ED ---
Shashi Bains Angela, scribed for Elvis Diaz MD on 07/09/17 at 1240 . Throat Pain/Nasal Congestion - HPI Summary HPI Summary: This pt is a 62 y/o male presenting to [facility] c/o left eye injury s/p a tree branch hit his eye yesterday. 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 Pt endorses mild pain and redness. He denies decreased vision, blurry vision, foreign body in eye, eye drainage, fever, and chills. - History of Current Complaint Chief Complaint: EDEyeProblem Time Seen by Provider: 07/09/17 12:28 Hx Obtained From: Patient Onset/Duration: Sudden Onset - s/p injury - Allergies/Home Medications Allergies/Adverse Reactions: Allergies Allergy/AdvReac Type Severity Reaction Status Date / Time No Known Allergies Allergy Verified 07/09/17 12:18 PMH/Surg Hx/FS Hx/Imm Hx Endocrine/Hematology History: Reports: Hx Diabetes Denies: Hx Sickle Cell Disease Cardiovascular History: Reports: Hx Hypertension - UNDER CONTROL WITH MEDICATION Denies: Hx Pacemaker/ICD Respiratory History: Reports: Hx Sleep Apnea, Other Respiratory Problems/ Disorders - legionell pneumonia resolved finishing up antibiotic GI History: Reports: Hx Irritable Bowel History: Denies: Hx Renal Disease, Other Problems/Disorders Musculoskeletal History: Reports: Hx Arthritis - HIPS AND KNEES Sensory History: Reports: Hx Cataracts - RIGHT EYE Denies: Hx Contacts or Glasses, Hx Hearing Aid Opthamlomology History: Reports: Hx Cataracts - RIGHT EYE Denies: Hx Contacts or Glasses Neurological History: Reports: Other Neuro Impairments/Disorders - 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 Psychiatric History: Reports: Hx Depression - ON MEDICATION, WORKING WELL FOR PATIENT Denies: Hx Panic Disorder - Surgical History Surgery Procedure, Year, and Place: cataract removal right eye with lens implant 3-4 years ago Hx Anesthesia Reactions: No Infectious Disease History: Denies: Traveled Outside the [place] in Last 30 Days - Family History Known Family History: Positive: Cardiac Disease - Social History Alcohol Use: Occasionally Substance Use Type: Reports: None Smoking Status (MU): Former Smoker Amount Used/How Often: smoked for 10 years 1ppd Review of Systems Negative: Fever, Chills Eyes: Other - NEGATIVE: eye drainage Positive: Other - POSITIVE: Left eye redness. Negative: Photophobia, Blurred Vision All Other Systems Reviewed And Are Negative: Yes Physical Exam - Summary Physical Exam Summary: VITAL SIGNS: Reviewed. GENERAL: Patient is a well-developed and nourished male who is lying comfortable in the stretcher. Patient is not in any acute respiratory distress. HEAD AND FACE: Normocephalic and atraumatic. EYES: PERRLA, EOMI x 2, No injected conjunctiva. There is subconjunctival hemorrhage on the left eye. Fundoscopic exam is normal. EARS: Hearing grossly intact. Ear canals and tympanic membranes are WNL. MOUTH: Oropharynx within normal limits. NECK: Supple, trachea is midline, no adenopathy, no JVD. CHEST: Symmetric, no tenderness at palpation LUNGS: Clear to auscultation bilaterally. No wheezing or crackles. CVS: RRR, S1 and S2 present, no murmurs or gallops appreciated. EXTREMITIES: FROM in all major joints, no edema, no cyanosis or clubbing. NEURO: Alert and oriented x 3. No acute neurological deficits. Speech is normal. SKIN: Dry and warm Triage Information Reviewed: Yes Vital Signs On Initial Exam: Initial Vitals Temp Pulse Resp BP Pulse Ox 98.1 F 108 20 140/93 98 07/09/17 12:18 07/09/17 12:18 07/09/17 12:18 07/09/17 12:18 07/09/17 12:18 Vital Signs Reviewed: Yes Diagnostics - Vital Signs Vital Signs Temp Pulse Resp BP Pulse Ox 07/09/17 12:18 98.1 F 108 20 140/93 98 - Laboratory Lab Statement: Any lab studies that have been ordered have been reviewed, and results considered in the medical decision making process. EENT Course/Dx - Course Course Of Treatment: This pt is a 62 y/o male [facility] eye [facility] s/p a tree branch hit his eye yesterday. 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 Pt endorses mild pain and redness. He denies decreased vision, blurry vision, foreign body in eye, fever, and chills. This pt was hit with a tree branch yesterday and has some redness around the eye. He denies any pain and any feeling of foreign body; he denies blurry vision or decreased vision. In the physical exam, the pt has good extraocular muscle movement and he does not have any pain on movement. Visual acuity is within normal limits. There is no entrapment of the eye. I believe the pt has a subconjunctival hemorrhage, therefore the pt will be discharged home with a follow up from Dr. Morton ( solar electric installer). I had a long discussion with the pt on reasons to return to the emergency department such as vision, blurry vision, and pain. The pt understands and is agreeable with this plan. The pt is hemodynamically stable , alert and oriented x3. - Diagnoses Provider Diagnoses: Subconjunctival hemorrhage of left eye Discharge - Discharge Plan Condition: Stable Disposition: HOME Patient Education Materials: Subconjunctival Hemorrhage (ED) Referrals: Ulices Morton MD [Medical Doctor] - Karyn Villareal NP [Primary Care Provider] - Additional Instructions: Your bloos pressure was elevated during today's visit. Please follow up with your primary care physician. Also, please follow up with Dr. Morton ( solar electric installer) regarding your eye injury. The documentation as recorded by the Shashi cortes Angela accurately reflects the service I personally performed and the decisions made by me, Elvis Diaz MD.
== END 2017-07-09 13:01 | disposition home or self-care (01) ==
LOC: ED 12:07
DX: H11.32 Conjunctival hemorrhage, left eye (principal); S05.92XA Unspecified injury of left eye and orbit, initial encounter; W22.8XXA Striking against or struck by other objects, initial encounter; Y93.9 Activity, unspecified; Y92.9 Unspecified place or not applicable; Z87.891 Personal history of nicotine dependence
CPT/HCPCS: 99281

== ENCOUNTER 2017-11-12 10:03 | Observation (INO) | payer BC ==
--- NOTE | 2017-11-08 00:16 | HP ---
CC: Karyn Villareal NP * HISTORY AND PHYSICAL: DATE OF PLANNED ADMISSION AND SURGERY: 11/12/17 HISTORY OF PRESENT ILLNESS: Mr. Fairbanks is a 62-year-old white male who is admitted with bladder outlet obstruction and prostate enlargement for transurethral resection of the prostate. Mr. Fairbanks had a long history of a bladder outlet obstruction and had an episode of acute prostatitis back in 2005. He has continued to be symptomatic with decreased urinary stream and hesitancy. I saw him 1 year ago and he was noted to have an elevated postvoid residual of 110 cc. He was started on tamsulosin 0.4 mg daily and then increased to 0.8 with only marginal improvement in his voiding. Because of persistent symptoms, he had a cystoscopy 5 months ago. It showed an enlarged prostate with a prominent obstructing median lobe and bladder trabeculations. He was then started on finasteride. He was re-evaluated earlier this month and he continued to be symptomatic with hesitancy, frequency, voiding about every hour typically in small amounts with postvoid dribbling and feeling of incomplete bladder emptying. Urodynamic studies showed a high voiding detrusor pressure and an elevated postvoid residual. Because of the above history and findings and the failure of medical treatment, transurethral resection of the prostate was advised and accepted. PAST MEDICAL HISTORY AND SYSTEM REVIEW: 1. He is diabetic, maintained on glipizide and metformin. 2. He is hypertensive, maintained on hydrochlorothiazide and lisinopril. 3. He has hyperlipidemia. He denies any cardiac or pulmonary diseases or symptoms. ALLERGIES: He denies any allergies to medications. 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 PHYSICAL EXAMINATION GENERAL: Pleasant white male, who looks older than his age and who is fairly obese. VITAL SIGNS: Blood pressure 126/70. LUNGS: Clear. HEART: Regular and rhythmic. No murmurs. ABDOMEN: Soft. No masses, no tenderness, and no CVA tenderness. EXTERNAL GENITALIA: Normal. RECTAL: Exam showed an enlarged, but nonsuspicious prostate. IMPRESSION: Bladder outlet obstruction with prostate enlargement and failure of medical treatment with persistent symptoms and persistent elevated postvoid residual. PLAN: Transurethral resection of the prostate. I discussed the operation in detail with the patient. Some of the potential complications including infection, hematuria, small incidence of urinary incontinence, and very high incidence of retrograde ejaculations. All of his questions were answered. [id number]/[facility] #: [id number] [place]
[~2017-11-12 10:03] MED LIST: Buffered Lidocaine 0.9% SYRIN* 5 ML/SYR SYRINGE INTRADERM ONE; Famotidine IV* 10 MG/ML 2 ML (20 mg) IV ONE
[2017-11-12] MEDS ORDERED: Famotidine IV* 10 MG/ML 2 ML (20 mg) ONE (11:02)
[2017-11-12] MEDS ORDERED: Buffered Lidocaine 0.9% SYRIN* 5 ML/SYR SYRINGE ONE (11:02)
[2017-11-12] MEDS ORDERED: cefTRIAXone(*) 2 GM ADDV.VIAL IVPB ONE (11:02)
[2017-11-12 11:45] LABS: Hematocrit 44 % (42-52); Hemoglobin 15.1 g/dl (14.0-18.0); Mean Corpuscular HGB Conc 35 g/dl (31-36); Mean Corpuscular Hemoglobin 30 pg (27-31); Mean Corpuscular Volume 86 fL (80-94); Mean Platelet Volume 9 um3 (7.4-10.4); Red Blood Count 5.11 10^6/ul (4.0-5.4); Red Cell Distribution Width 14 % (10.5-15); White Blood Count 12.4 10^3/ul (3.5-10.8)
[2017-11-12] MEDS ORDERED: Insulin LISPRO* 1 UNITS UNIT SUBCUT ONE (11:52)
[2017-11-12 11:59] LABS: BUN/Creatinine Ratio 18.9 (8-20); Calcium 9.6 mg/dL (8.6-10.3); EGFR African American 103.7 (>60); EGFR Non-African American 80.6 (>60); Potassium 4.1 mmol/L (3.5-5.0)
[2017-11-12] MEDS ORDERED: Midazolam* 1 MG/ML 2 ML VIAL (2 MG) ONE ×2 (13:38→14:46)
[2017-11-12] MEDS ORDERED: KETAMINE HCL* 50 MG/ML 10 ML VIAL ONE (13:38)
[2017-11-12] MEDS ORDERED: Phenylephrine INJ* 10 MG/ML 1 ML VIAL (10 MG) ONE (14:18)
[2017-11-12] MEDS ORDERED: Propofol* 10 MG/ML 20 ML BTL IV PUSH ONE (14:39)
[2017-11-12] MEDS ORDERED: Ketorolac INJ* 30 MG/ML 1 ML VIAL IV PRN (15:58)
[2017-11-12] MEDS ORDERED: DiMENhydriNATE IV* 50 MG/ML VIAL IV PUSH PRN (15:58)
[2017-11-12] MEDS ORDERED: Ketorolac INJ* 30 MG/ML 1 ML VIAL ONE (16:07)
[2017-11-12] MEDS ORDERED: Scopolamine 1.5 mg* PATCH ONE (16:15)
[2017-11-12] MEDS ORDERED: Ondansetron INJ* 2 MG/ML VIAL IV PRN (16:32)
[2017-11-12] MEDS ORDERED: Dextrose 50% Syringe 50 ML* 25 GM/50 ML SYRINGE IV PUSH PRN (16:32)
[2017-11-12] MEDS ORDERED: HYDROmorphone INJ* 1 MG/ML CARPUJECT SYRINGE ONE (16:49)
[2017-11-12] MEDS: HYDROmorphone INJ* 1 MG/ML CARPUJECT SYRINGE IV PRN ×2 (16:52→17:09)
[2017-11-12] MEDS ORDERED: Scopolamine 1.5 mg* PATCH TRANSDERM SCH (17:00)
--- NOTE | 2017-11-12 17:04 | RAD ---
INDICATION: Tachycardia COMPARISON: March 26, 2017 TECHNIQUE: An AP portable view obtained at 1646 hours is submitted. FINDINGS: Bones/Soft Tissues: There are no acute bony findings. Cardiomediastinal: The cardiomediastinal silhouette is normal. Lungs: There are no infiltrates. Pleura: There are no pleural effusions. Other: None IMPRESSION: NO ACTIVE DISEASE
[2017-11-12 17:20] LABS: BUN/Creatinine Ratio 16.3 (8-20); Calcium 9.1 mg/dL (8.6-10.3); EGFR Non-African American 77.8 (>60); Potassium 4.1 mmol/L (3.5-5.0)
[2017-11-12 17:27] LABS: Hematocrit 41 % (42-52); Hemoglobin 14.4 g/dl (14.0-18.0); Mean Corpuscular HGB Conc 35 g/dl (31-36); Mean Corpuscular Hemoglobin 30 pg (27-31); Mean Corpuscular Volume 85 fL (80-94); Mean Platelet Volume 9 um3 (7.4-10.4); Red Blood Count 4.84 10^6/ul (4.0-5.4); Red Cell Distribution Width 14 % (10.5-15); White Blood Count 5.6 10^3/ul (3.5-10.8)
[2017-11-12] MEDS ORDERED: fentaNYL* 50 MCG/ML 2 ML VIAL (100 MCG VIAL) ONE (17:50)
[2017-11-12] MEDS ORDERED: Tamsulosin CAP* 0.4 MG ONE (17:50)
[2017-11-12] MEDS: fentaNYL* 50 MCG/ML 2 ML VIAL (100 MCG VIAL) IV PRN ×2 (17:51→18:03)
[2017-11-12] MEDS: Tamsulosin CAP* 0.4 MG PO SCH (17:51)
[2017-11-12 20:07] LABS: Magnesium 1.2 mg/dL (1.9-2.7)
[2017-11-12 20:21] LABS: TSH (Thyroid Stimulating Horm) 2.83 mcIU/mL (0.34-5.60)
--- NOTE | 2017-11-12 20:30 | CONS ---
CONSULTATION REPORT: DATE OF CONSULT: 11/12/17 PROVIDER: July Singh NP ATTENDING PHYSICIAN: Alvin Duffy MD PHYSICIAN REQUESTING CONSULT: Alvin Duffy MD REASON FOR CONSULT: Co-management of the patient's chronic medical conditions. HISTORY OF PRESENT ILLNESS: Mr. Fairbanks is a 62-year-old white male, who is admitted with bladder outlet obstruction and prostate enlargement for a transurethral resection of the prostate. Mr. Fairbanks has had a longstanding history of bladder outlet obstruction and had an episode of acute prostatitis back in 2005. He has continued to be symptomatic with decreased urinary stream and hesitancy. So, he was admitted today for an elective TURP procedure. Approximately, 45 minutes into the procedure, he developed trembling and shaking episode that he was unable to control. The surgical procedure was terminated and the patient was brought to the PACU. Postoperatively, the patient is complaining of nausea and groin pain due to the traction on the bladder catheter. The patient states that leading up to the surgery, he has been in a good state of health. He does have some chronic arthritic pain. He states that he did do a lot of housework and cleaning yesterday and this morning when he woke, he was feeling a little nauseated and was having difficulty ambulating due to all the strenuous work he did yesterday. The patient denies any recent shortness of breath, fever, chills, or vomiting. Denies diarrhea or abdominal pain. He denies any chest pain. The hospitalists were asked management of this patient during the postoperative period. PAST MEDICAL HISTORY: 1. He is a type 2 diabetic. 2. Hypertension. 3. Hyperlipidemia. PAST SURGICAL HISTORY: None. HOME MEDICATIONS: 1. Imodium A-D 1 tab p.o. daily. 2. Glipizide 10 mg p.o. b.i.d. 3. Flomax 0.4 mg q.p.m. 4. Paxil 40 mg p.o. q.p.m. 5. Metformin 2500 mg p.o. q.p.m. 6. Lisinopril 40 mg p.o. q.a.m. 7. Hydrochlorothiazide 12.5 mg p.o. q.a.m. 8. Hydrocodone/acetaminophen 5/325 one tablet t.i.d. as needed. 9. Proscar 5 mg p.o. at bedtime. ALLERGIES: No known drug allergies. FAMILY HISTORY: He does report family history of coronary artery disease with his father and grandfather, unsure. He also reports that there are strokes in the family, diabetes, states that his grandparents had diabetes and cancer, he states that his father had several bouts of skin cancer. SOCIAL HISTORY: States that he quit smoking in 1980. Prior to that, he smoked 2 packs a day for approximately 20 hours. He does consume alcohol occasionally. Denies any illicit drug use. He currently works for [employer]. Surrogate decision maker in the event he is unable to make his own decisions is Alissa Simms. Her number is [phone]. REVIEW OF SYSTEMS: Constitution: There have been no fevers, no anorexia. Cardiac: No chest pain, no edema. Respiratory: No cough, hemoptysis, or shortness of breath. GI: mild nausea, no vomiting, or diarrhea. No abdominal pain. : No gross hematuria. He does report that he has just difficulty urinating, having a full stream. Neurologically, denies any focal weakness or sensory loss. Eyes: No visual complaints. ENT: No dysphagia. Musculoskeletal: He does report that he has arthritic pain in his joints. Skin : No rashes or lesions. Psych: No psychosis or anxiety. PHYSICAL EXAM: General: At this time, Mr. Fairbanks is a 62-year-old male. He is resting on the stretcher. He is currently complaining of nausea and pain in the groin area due to the traction on the catheter. He does not appear to be in any acute distress. Vital Signs: Blood pressure 116/70, heart rate is 136, respirations are 20, O2 sat is 90% on room air, temperature was 97.2 temporal. HEENT: Head is atraumatic, normocephalic. EOMs are intact. Sclerae anicteric , not pale. Oral mucosa appears to be dry. There is no oropharyngeal erythema. Neck is supple. Lungs are clear to auscultation bilaterally. No wheezes, rales, or rhonchi. Cardiac: S1, S2. The rate is regular, but he is tachycardic. There are no murmurs, rubs, or gallops. The abdomen is soft and nontender. Bowel sounds are present x4. Extremities: His pulses are +2 throughout. He is moving all extremities. Neurologic: He is alert and oriented x3. Hand assurance manager are equal. Tongue is midline. Speech is clear. There are no focal deficits. Skin is intact. DIAGNOSTIC STUDIES/LAB DATA: WBC is 12.4, hemoglobin is 15.1, hematocrit is 44 , platelet count was 158. APTT is 29.6. Sodium is 131, potassium is 4.1, chloride is 100, carbon dioxide is 22, BUN is 18, creatinine is 0.95, glucose initially at 11:27 this morning was 335, and calcium is 9.6. EKG is pending at this time. Chest x-ray is also pending at this time. IMPRESSION AND PLAN: Mr. Fairbanks is a 62-year-old male that was brought in for an elective transurethral resection of the prostate procedure today. In the immediate postoperative period, he is tachycardic in the 130s and did have an episode of uncontrollable shaking. Due to his co-medical conditions, we were asked to consult on the patient. Our recommendations are as follows: 1. Status post partial transurethral resection of the prostate. Management will be per Surgery. 2. Tachycardia. We will obtain an EKG at this time. He will be admitted to telemetry and monitored for the tachycardia. We will also repeat a CBC and a BMP. The tachycardia is likely related to the increased pain of the recent surgical procedure. We will also obtain blood cultures, UA, and urine cultures. We are going to obtain a chest x-ray to rule out other pathologic reasons. 3. Hypertension. We will continue him on his lisinopril. 4. Type [address] his glipizide and metformin on hold. We will place him on lispro sliding scale coverage and he will have Accu-Chek a.c. and h.s. for coverage. 5. DVT prophylaxis will be per Surgery. 6. Code status. He is a full code. 7. Activity will be per Surgery. 8. Diet as per Surgery. TIME SPENT: Approximately, 45 minutes was spent on this consultation of the patient. More than half the time was spent with the patient at the bedside reviewing events leading up to his hospitalization, performing physical exam, and reviewing my plan of care. The case has been reviewed with my attending, Dr. Raissa Borjas, who agrees with my plan of care. JULY SINGH, KNITTER WIRE MESH [id number]/[facility] #: [id number] F F THOMPSON HOSPITALNoah
[2017-11-12] MEDS ORDERED: Oxybutynin TAB* 5 MG PO PRN (20:38)
[2017-11-12] MEDS ORDERED: oxyCODONE/Acetamin 5/325 MG* TAB PO PRN (20:40)
[2017-11-12] MEDS ORDERED: HYDROcodone/ACETAMIN 5-325 MG* 1 TAB PO PRN (20:41)
[2017-11-12] MEDS ORDERED: Lidocaine 2% JELLY* 6 ML JELLY TOPICAL PRN (21:22)
[2017-11-12 21:46] LABS: Urine Bacteria Absent (Absent)
[2017-11-12] MEDS: glipiZIDE TAB* 5 MG PO SCH (22:11)
[2017-11-12] MEDS: PARoxetine HCL TAB* 40 MG PO SCH (22:11)
[2017-11-12] MEDS: Finasteride TAB* 5 MG PO SCH (22:11)
[2017-11-12] MEDS: Insulin LISPRO* 1 UNITS UNIT SUBCUT SCH (22:11)
[2017-11-13 05:11] LABS: Hematocrit 40 % (42-52); Hemoglobin 13.5 g/dl (14.0-18.0); Mean Corpuscular HGB Conc 34 g/dl (31-36); Mean Corpuscular Hemoglobin 29 pg (27-31); Mean Corpuscular Volume 87 fL (80-94); Mean Platelet Volume 9 um3 (7.4-10.4); Red Blood Count 4.58 10^6/ul (4.0-5.4); Red Cell Distribution Width 15 % (10.5-15); White Blood Count 10.1 10^3/ul (3.5-10.8)
[2017-11-13 05:26] LABS: BUN/Creatinine Ratio 15.9 (8-20); EGFR African American 70.9 (>60); EGFR Non-African American 55.1 (>60); Potassium 4.1 mmol/L (3.5-5.0)
[2017-11-13] MEDS: Lisinopril TAB* 10 MG PO SCH (08:52)
[2017-11-13] MEDS: Hydrochlorothiazide TAB* 25 MG PO SCH (08:52)
[2017-11-13] MEDS: Loperamide CAP* 2 MG PO SCH (08:52)
[2017-11-13] MEDS: glipiZIDE TAB* 5 MG PO SCH ×2 (08:52→20:46)
[2017-11-13] MEDS: Insulin LISPRO* 1 UNITS UNIT SUBCUT SCH ×4 (08:57→20:46)
[2017-11-13] MEDS ORDERED: Ibuprofen TAB* 400 MG PO PRN (12:03)
[2017-11-13] MEDS ORDERED: diPHENhydraMINE PO* 25 MG PO PRN (12:03)
[2017-11-13] MEDS: Ibuprofen TAB* 800 MG PO PRN (12:28)
--- NOTE | 2017-11-13 16:03 | OP ---
DATE OF OPERATION: 11/12/17 - ROOM #338 DATE OF : 57 SURGEON: Alvin Duffy MD. ANESTHESIOLOGIST: Valentin Mariano MD ANESTHESIA: Spinal. PRE-OPERATIVE DIAGNOSES: 1. Benign prostatic hyperplasia. 2. Bladder outlet obstruction due to above. POST-OPERATIVE DIAGNOSES: 1. Benign prostatic hyperplasia. 2. Bladder outlet obstruction due to above. OPERATIVE PROCEDURE: Transurethral resection of the prostate. INDICATION FOR PROCEDURE: Mr. Fairbanks is a 62-year-old white male who has a long history of bladder outlet obstruction due to prostate enlargement. Because of increasing obstructive voiding symptoms, he was maintained on tamsulosin 0.8 mg daily and on finasteride 5 mg daily. He continued to be significantly symptomatic with urgency, frequency, small voidings and increased postvoid residual. Cystoscopy showed a large obstructing prostate with a large median lobe. Urodynamic studies showed good detrusor function with a high voiding detrusor pressure. Because of the above history and failure of medical treatment, TURP was advised and accepted. PATHOLOGY AND CYSTOSCOPY: The penile and bulbar urethrae looked normal. The prostatic urethra measured about 4 cm in length and there was a marked degree of obstruction by trilobar hyperplasia of the prostate. The major pathology noted that made the procedure difficult was the very high and rigid bladder neck , which made introducing the cystoscope into the bladder past the bladder neck very difficult due to the angle and the rigidity. The other factor that made the procedure difficult is the body habitus and the length of the urethra and the prostatic urethra making the resectoscope just long enough to enter the bladder. Examination of the bladder showed moderate diffuse trabeculations. There were no suspicious bladder lesions seen. The prostate adenoma was large, and moderately vascular. DESCRIPTION OF PROCEDURE: After successful spinal anesthesia, the patient was placed in the lithotomy position and was prepped and draped in the usual manner. Cystoscopy was then performed; however in spite of angling the cystoscope almost 90 degress, it could not be introduced into the bladder past the bladder neck due to the above described pathology. The resectoscope was then introduced inside the urethra and after bending the scope acutely to 90 degrees, it was successfully introduced inside the bladder. Mannitol and sorbitol was used for irrigation. The inflow and outflow were adjusted to avoid over distention of the bladder. Resection of the median lobe and of the posterior bladder neck was then performed, making it easier for to introduce the scope in and out of the bladder. Resection of the protruding portion of the lateral lobes into the bladder neck was then performed resecting the tissue circumferentially. The resectoscope was then positioned at the mid prostatic urethra and circumferential resection of the adenomatous tissue was performed. The resectoscope was then positioned at the level of the verumontanum and circumferential resection of the obstructing tissue was also performed. The bleeders were electrocoagulated and controlled. Because of the very high bladder neck, there was a slight undermining of the trigone; however, it did not seem to be a problem and the resection continued. Through the latter part of the resection, the patient developed uncontrollable shakings and that made the continuation of the resection not possible. During the episodes of shaking, there was undermining of the trigone by the resectoscope, which could not be well controlled. At this point, it was decided to discontinue the procedure. The amount of tissue resected seemed to be adequate enough for the patient to have an improvement in his voiding. The resectoscope was introduced inside the bladder and the bladder was irrigated , evacuating the prostate chips. A guidewire was then introduced through the resectoscope and the resectoscope was removed keeping the guidewire in place. A 24 Ramos catheter with a 30 cc balloon was then introduced over the guidewire and successfully passed inside the bladder and the balloon inflated with 40 cc of water. The catheter was then placed under gentle traction and taped to the right thigh of the patient. Irrigation yielded clear returns. The patient's vital signs remained normal through the episode. He remained afebrile. The inflow of irrigation fluid was equivalent to the outflow indicating no fluid absorption. Blood was drawn for electrolytes and for CBC. The patient was then transported to the recovery room in good condition. The plan is for observation there. The blood loss was estimated at about 100 cc or less. The specimen was prostate chips. [id number]/[facility] #: [id number] [facility]
[2017-11-13] MEDS: Tamsulosin CAP* 0.4 MG PO SCH (17:33)
[2017-11-13] MEDS ORDERED: Metformin ER (NF) 500 MG TAB PO SCH (18:00)
--- NOTE | 2017-11-13 18:20 | PN ---
Subjective Date of Service: 11/13/17 Interval History: Patient had rigors during TURP yesterday, admitted to treat ?bacteremia. He is feeling OK, eating well. Notes sugar high. Metformin ER on hold due to non-formulary Family History: Unchanged from Admission Social History: Unchanged from Admission Past Medical History: Unchanged from Admission Objective Active Medications: Hydrocodone Bitart/Acetaminophen (Lynn 5-325 Tab*) 1 tab PO TID PRN PRN Reason: PAIN Last Admin: 11/12/17 22:11 Dose: 1 tab Dextrose (D50w Syringe 50 Ml*) 12.5 gm IV PUSH .FOR FS < 60 - SS PRN PRN Reason: FS < 60 Diphenhydramine HCl (Benadryl Po*) 25 mg PO Q6H PRN PRN Reason: Allergy Symptoms Last Admin: 11/13/17 12:28 Dose: 25 mg Finasteride (Proscar Tab*) 5 mg PO BEDTIME [facility] Last Admin: 11/12/17 22:11 Dose: 5 mg Glipizide (Glucotrol Tab*) 10 mg PO BID [facility] Last Admin: 11/13/17 08:52 Dose: 10 mg Hydrochlorothiazide (Hydrodiuril Tab*) 12.5 mg PO QAM [facility] Last Admin: 11/13/17 08:52 Dose: 12.5 mg Lactated Ringer's (Lactated Ringers 1000 Ml Bag*) 1,000 mls @ 150 mls/hr IV PER RATE [facility] Last Admin: 11/13/17 16:42 Dose: 150 mls/hr Lactated Ringer's (Lactated Ringers 500 Ml Bag*) 500 mls @ 0 mls/hr IV ONCE PRN ; As Directed PRN Reason: IF SBP<90 Stop: 11/13/17 20:39 Ibuprofen (Motrin Tab*) 800 mg PO Q8H PRN PRN Reason: PAIN Last Admin: 11/13/17 12:28 Dose: 800 mg Insulin Human Lispro (Humalog*) 0 units SUBCUT ACHS [facility] PRN Reason: Protocol Last Admin: 11/13/17 17:33 Dose: 9 units Lidocaine HCl (Lidocaine 2% Jelly*) 1 applic TOPICAL . DIRECTED PRN PRN Reason: AROUND MEATUS Lisinopril (Prinivil Tab*) 40 mg PO QAM [facility] Last Admin: 11/13/17 08:52 Dose: 40 mg Loperamide HCl (Imodium Cap*) 2 mg PO DAILY [facility] Last Admin: 11/13/17 08:52 Dose: 2 mg Metformin HCl ER 2500 mg PO 1700 [facility] Ondansetron HCl (Zofran Inj*) 4 mg IV Q6H PRN PRN Reason: NAUSEA Oxybutynin Chloride (Ditropan Tab*) 5 mg PO Q6H PRN PRN Reason: SPASMS Last Admin: 11/13/17 07:27 Dose: 5 mg Oxycodone/Acetaminophen (Percocet 5/325 Tab*) 1 tab PO Q4H PRN PRN Reason: PAIN Paroxetine HCl (Paxil Tab*) 40 mg PO BEDTIME [facility] Last Admin: 11/12/17 22:11 Dose: 40 mg Scopolamine (Transderm-Scop 1.5 Mg Patch*) 1 patch TRANSDERM Q72H EJAN[facility] Last Admin: 11/12/17 18:25 Dose: 1 patch Tamsulosin HCl (Flomax Cap*) 0.4 mg PO QPM [facility] Last Admin: 11/13/17 17:33 Dose: 0.4 mg Vital Signs - 8 hr 11/13/17 11/13/17 11/13/17 10:40 11:18 12:28 Temperature 37.4 C Pulse Rate 103 Respiratory 16 18 16 Rate Blood Pressure 127/80 (mmHg) O2 Sat by Pulse 95 Oximetry 11/13/17 11/13/17 11/13/17 14:49 15:55 16:00 Temperature 37.0 C Pulse Rate 105 Respiratory 16 18 Rate Blood Pressure 114/72 (mmHg) O2 Sat by Pulse 94 94 Oximetry Oxygen Devices in Use Now: Nasal Cannula, CPAP Appearance: alert, no distress Ears/Nose/Mouth/Throat: NL Teeth, Lips, Gums Neck: NL Appearance and Movements; NL JVP Respiratory: Symmetrical Chest Expansion and Respiratory Effort, Clear to Auscultation Cardiovascular: NL Sounds; No Murmurs; No JVD, RRR Abdominal: NL Sounds; No Tenderness; No Distention, No Hepatosplenomegaly Lines/Tubes/Other Access: Clean, Dry and Intact Ramos - bloody, Clean, Dry and Intact Peripheral IV Nutrition: Taking PO's Result Diagrams: 11/13/17 04:57 11/13/17 04:57 Additional Lab and Data: Microbiology 11/12/17 10:45 Urine Urine Culture - Preliminary Gram Negative Bacilli Laboratory Tests 11/12/17 11/12/17 11/13/17 19:58 21:07 07:27 POC Glucose (mg/dL) 414 H* 259 H Influenza A (Rapid) Negative Influenza B (Rapid) Negative 11/13/17 11/13/17 11:54 16:37 POC Glucose (mg/dL) 275 H 253 H Influenza A (Rapid) Influenza B (Rapid) Microbiology and Other Data: Microbiology Assess/Plan/Problems-Billing Assessment: 62 yo man w/ diabetes, admitted for elective TURP, which was aborted part-way through procedure due to rigors. - Patient Problems (1) UTI (urinary tract infection) Current Visit: Yes Status: Acute Priority: High Comment: -UTI likely due to instrumentation -Culture is growing gram (-) rods -On appropriate antibiotic coverage. (2) Type 2 diabetes mellitus Current Visit: Yes Status: Acute Priority: Medium Comment: -Diabetes significantly out of control, could interfere w/ wound healing -Will restart metformin and low-dose lantus Status and Disposition: likely discharge tomorrow
[2017-11-13] MEDS: metFORMIN* 1,000 MG TAB PO SCH (18:32)
[2017-11-13] MEDS ORDERED: Insulin GLARGINE(*) 1 UNITS UNIT SUBCUT SCH (19:00)
[2017-11-13] MEDS: Finasteride TAB* 5 MG PO SCH (20:46)
[2017-11-13] MEDS: PARoxetine HCL TAB* 40 MG PO SCH (20:48)
[2017-11-14] MEDS: Ibuprofen TAB* 800 MG PO PRN (01:46)
[2017-11-14] MEDS: glipiZIDE TAB* 5 MG PO SCH (08:48)
[2017-11-14] MEDS: metFORMIN* 1,000 MG TAB PO SCH (08:48)
[2017-11-14] MEDS: Lisinopril TAB* 10 MG PO SCH (08:48)
[2017-11-14] MEDS: Loperamide CAP* 2 MG PO SCH (08:49)
[2017-11-14] MEDS: Hydrochlorothiazide TAB* 25 MG PO SCH (08:49)
[2017-11-14] MEDS: Insulin LISPRO* 1 UNITS UNIT SUBCUT SCH ×2 (08:51→13:40)
--- NOTE | 2017-11-14 08:51 | PN ---
Subjective Date of Service: 11/14/17 Interval History: Patient is feeling OK. Has had poorly controlled diabetes for >1 year. Also has aches and pains in both hips, knees, shoulders for 1 year. He is looking forward to going home today. Family History: Unchanged from Admission Social History: Unchanged from Admission Past Medical History: Unchanged from Admission Objective Active Medications: Hydrocodone Bitart/Acetaminophen (Bath 5-325 Tab*) 1 tab PO TID PRN PRN Reason: PAIN Last Admin: 11/12/17 22:11 Dose: 1 tab Dextrose (D50w Syringe 50 Ml*) 12.5 gm IV PUSH .FOR FS < 60 - SS PRN PRN Reason: FS < 60 Diphenhydramine HCl (Benadryl Po*) 25 mg PO Q6H PRN PRN Reason: Allergy Symptoms Last Admin: 11/13/17 12:28 Dose: 25 mg Finasteride (Proscar Tab*) 5 mg PO BEDTIME [facility] Last Admin: 11/13/17 20:46 Dose: 5 mg Glipizide (Glucotrol Tab*) 10 mg PO BID [facility] Last Admin: 11/13/17 20:46 Dose: 10 mg Hydrochlorothiazide (Hydrodiuril Tab*) 12.5 mg PO QAM [facility] Last Admin: 11/13/17 08:52 Dose: 12.5 mg Lactated Ringer's (Lactated Ringers 1000 Ml Bag*) 1,000 mls @ 150 mls/hr IV PER RATE [facility] Last Admin: 11/14/17 06:12 Dose: 150 mls/hr Ceftriaxone Sodium 2 gm/ (Sodium Chloride) 100 mls @ 200 mls/hr IVPB ONCE ONE Stop: 11/14/17 12:29 Ibuprofen (Motrin Tab*) 800 mg PO Q8H PRN PRN Reason: PAIN Last Admin: 11/14/17 01:46 Dose: 800 mg Insulin Human Lispro (Humalog*) 0 units SUBCUT ACHS [facility] PRN Reason: Protocol Last Admin: 11/13/17 20:46 Dose: 6 units Lidocaine HCl (Lidocaine 2% Jelly*) 1 applic TOPICAL . DIRECTED PRN PRN Reason: AROUND MEATUS Lisinopril (Prinivil Tab*) 40 mg PO QAM [facility] Last Admin: 11/13/17 08:52 Dose: 40 mg Loperamide HCl (Imodium Cap*) 2 mg PO DAILY [facility] Last Admin: 11/13/17 08:52 Dose: 2 mg Metformin HCl (Glucophage*) 1,000 mg PO 0800,1700 [facility] Last Admin: 11/13/17 18:32 Dose: 1,000 mg Ondansetron HCl (Zofran Inj*) 4 mg IV Q6H PRN PRN Reason: NAUSEA Last Admin: 11/14/17 01:42 Dose: 4 mg Oxybutynin Chloride (Ditropan Tab*) 5 mg PO Q6H PRN PRN Reason: SPASMS Last Admin: 11/13/17 07:27 Dose: 5 mg Oxycodone/Acetaminophen (Percocet 5/325 Tab*) 1 tab PO Q4H PRN PRN Reason: PAIN Paroxetine HCl (Paxil Tab*) 40 mg PO BEDTIME [facility] Last Admin: 11/13/17 20:48 Dose: 40 mg Scopolamine (Transderm-Scop 1.5 Mg Patch*) 1 patch TRANSDERM Q72H [facility] Last Admin: 11/12/17 18:25 Dose: 1 patch Tamsulosin HCl (Flomax Cap*) 0.4 mg PO QPM [facility] Last Admin: 11/13/17 17:33 Dose: 0.4 mg Vital Signs - 8 hr 11/14/17 11/14/17 03:11 07:35 Temperature 37.7 C 36.3 C Pulse Rate 95 80 Respiratory 20 18 Rate Blood Pressure 130/73 139/58 (mmHg) O2 Sat by Pulse 95 96 Oximetry Oxygen Devices in Use Now: None, CPAP Appearance: obese, no distress Ears/Nose/Mouth/Throat: NL Teeth, Lips, Gums Respiratory: Clear to Auscultation Cardiovascular: NL Sounds; No Murmurs; No JVD Abdominal: NL Sounds; No Tenderness; No Distention Neurological: Alert and Oriented x 3 Lines/Tubes/Other Access: Clean, Dry and Intact Ramos, Clean, Dry and Intact Peripheral IV Result Diagrams: 11/13/17 04:57 11/13/17 04:57 Additional Lab and Data: Microbiology 11/12/17 10:45 Urine Urine Culture - Preliminary Gram Negative Bacilli Laboratory Tests 11/13/17 11/13/17 11/13/17 11:54 16:37 20:40 POC Glucose (mg/dL) 275 H 253 H 245 H 12/24/17 08:15 POC Glucose (mg/dL) 242 H Assess/Plan/Problems-Billing Assessment: 62 yo man w/ diabetes, admitted for elective TURP, which was aborted part-way through procedure due to rigors. - Patient Problems (1) UTI (urinary tract infection) Current Visit: Yes Status: Acute Priority: High Comment: -UTI under treatment w/ ceftriaxone, would discharge on Ceftin, bactrim, or cipro -Culture is growing gram (-) rods, will follow up culture results as outpatient (2) Type 2 diabetes mellitus Current Visit: Yes Status: Acute Priority: Medium Comment: -Diabetes significantly out of control, could interfere w/ wound healing -We have restarted metformin. -Will plan to discharge on additional Victoza daily, discussed with patient. Status and Disposition: likely discharge today through Dr. Styles
[2017-11-14] MEDS ORDERED: PTO: Liraglutide (NF) 18 MG/3 ML SUBCUT SCH (09:00)
[2017-11-14] MEDS ORDERED: cefTRIAXone(*) 2 GM in NS 0.9% 100 ML* 100 ML IVPB ONE (12:00)
[2017-11-14 12:45] VITALS: BP 129/81
[2017-11-14] MEDS ORDERED: Sulfamethox/Trimethoprim DS 800/160* TAB PO ONE (13:30)
== END 2017-11-14 14:35 | disposition home or self-care (01) ==
LOC: OR 10:03 → SSU 19:11
PROVIDERS: ADMIT Urology; ATTEND Urology
PROC: 0VT08ZZ Resection of Prostate, Via Natural or Artificial Opening Endoscopic (ICD-10-PCS; principal; 2017-11-12 12:15)
DX: N40.1 Benign prostatic hyperplasia with lower urinary tract symptoms (principal); N13.8 Other obstructive and reflux uropathy; N39.0 Urinary tract infection, site not specified; R00.0 Tachycardia, unspecified; E11.9 Type 2 diabetes mellitus without complications; Z79.84 Long term (current) use of oral hypoglycemic drugs; I10 Essential (primary) hypertension; E78.5 Hyperlipidemia, unspecified; Z79.899 Other long term (current) drug therapy; Z87.891 Personal history of nicotine dependence; R94.31 Abnormal electrocardiogram [ECG] [EKG]; I45.10 Unspecified right bundle-branch block; M25.552 Pain in left hip; M25.551 Pain in right hip; M25.562 Pain in left knee; M25.561 Pain in right knee; M25.512 Pain in left shoulder; M25.511 Pain in right shoulder; R10.9 Unspecified abdominal pain
CPT/HCPCS: 36415; 62323; 71010; 80048; 81003; 82947; 83036; 83735; 84300; 84443; 85025; 85730; 87040; 87077; 87086; 87186; 87502; 88305; 93005; 96365; 96366; 96375; A9270-GY; G0378; J0696; J1170; J1642; J1885; J2250; J2405; J2704; J3010

== ENCOUNTER 2018-05-29 15:55 | Inpatient (IN) | payer BC ==
[2018-05-29] MEDS ORDERED: Ketorolac INJ* 30 MG/ML 1 ML VIAL ONE (16:09)
[2018-05-29] MEDS ORDERED: Ondansetron INJ* 2 MG/ML VIAL IV ONE (16:09)
[2018-05-29] MEDS ORDERED: Ketorolac INJ* 30 MG/ML 1 ML VIAL IV PUSH ONE (16:09)
[2018-05-29] MEDS ORDERED: Ondansetron INJ* 2 MG/ML VIAL ONE ×2 (16:09→19:54)
[2018-05-29] MEDS ORDERED: NS 0.9% 1000 ML* 1,000 ML IV ONE ×4 (16:09→19:55)
[2018-05-29 16:22] LABS: ABS Basophils 0 10^3/ul (0-0.2); ABS Eosinophils 0 10^3/ul (0-0.6); ABS Lymphocytes 0.3 10^3/ul (1.0-4.8); ABS Monocytes 0 10^3/ul (0-0.8); ABS Nucleated RBC 0 10^3/ul; Eosinophil % 0.5 % (0-6); Hematocrit 50 % (42-52); Hemoglobin 17.2 g/dl (14.0-18.0); Mean Corpuscular HGB Conc 35 g/dl (31-36); Mean Corpuscular Hemoglobin 30 pg (27-31); Mean Corpuscular Volume 87 fL (80-94); Mean Platelet Volume 8.8 um3 (7.4-10.4); Nucleated Red Blood Cells % 0.5; Platelet Count 155 10^3/ul (150-450); Red Cell Distribution Width 15 % (10.5-15); White Blood Count 1.2 10^3/ul (3.5-10.8)
[2018-05-29] MEDS ORDERED: HYDROmorphone INJ* 2 MG/ML CARPUJECT SYRINGE IV SLOW PU ONE (16:25)
[2018-05-29 16:39] LABS: EGFR Non-African American 50.7 (>60)
[2018-05-29] MEDS ORDERED: Metoprolol Tartrate IV* 1 MG/ML 5 ML VIAL IV ONE ×3 (17:02→18:56)
--- NOTE | 2018-05-29 17:24 | RAD ---
INDICATION: Left lower quadrant and left flank abdominal pain. COMPARISON: There are no prior studies available for comparison. TECHNIQUE: A CT scan of the abdomen and pelvis was performed without intravenous and without oral contrast. Contiguous axial sections were obtained from the lung bases through the symphysis pubis. Images were reconstructed in the coronal and sagittal planes. FINDINGS: There is mild dependent bilateral lower lobe subsegmental atelectasis. No pleural effusion is present. The liver is markedly enlarged and decreased in density consistent with fatty infiltration. No significant focal abnormality is seen on this noncontrast study. No calcified gallstones are noted. The spleen is upper limits of normal in size. There is fatty infiltration of the pancreas which is otherwise unremarkable. The adrenal glands appear within normal limits. There are bilateral hypodense renal lesions most consistent with cysts on this noncontrast study measuring up to 5.2 cm in size. There are couple punctate 1 mm calculi in the midportion of the left kidney. There is perinephric stranding around the left kidney. There is a 4 mm calculus present in the midportion of the left ureter just below the level of the top of the iliac crests causing [id number] hydronephrosis. No bladder calculi are seen. The prostate gland is slightly enlarged measuring 4.5 cm in size with internal calcifications. The aorta is normal in caliber with mild calcific plaque present. No significant enlarged retroperitoneal lymph nodes are seen. There appears to be a small hiatal hernia. The stomach, small and large bowel appear nondistended. The appendix is within normal limits. There is no evidence for diverticulitis or colitis. There is a small periumbilical hernia containing fat. No free intraperitoneal air or fluid is seen. No significant focal osseous abnormality is seen. IMPRESSION: 1. THERE IS A 4 MM CALCULUS IN THE MID LEFT URETER CAUSING [id number] HYDRONEPHROSIS. THERE ARE A COUPLE ADDITIONAL SMALL PUNCTATE LEFT RENAL CALCULI. 2. HEPATOMEGALY AND HEPATIC STEATOSIS.
[2018-05-29] MEDS ORDERED: Tamsulosin CAP* 0.4 MG PO ONE (18:57)
[2018-05-29 19:39] LABS: Urine Appearance Cloudy; Urine Blood 3+ (Negative); Urine Color Yellow; Urine Ketones Negative (Negative); Urine Protein 2+(100 mg/dL) (Negative); Urine Red Blood Cell 3+(>10/hpf) (Absent); Urine Specific Gravity 1.012 (1.010-1.030); Urine Urobilinogen Negative (Negative); Urine White Blood Cell 3+(>20/hpf) (Absent)
[2018-05-29] MEDS ORDERED: cefTRIAXone(*) 2 GM in NS 0.9% 100 ML* 100 ML IVPB ONE (19:50)
[2018-05-29] MEDS: Ondansetron INJ* 2 MG/ML VIAL IV ONE ×2 (19:59→20:00)
[2018-05-29] MEDS ORDERED: Gentamicin ADULT (*) 40 MG/ML VIAL IVPB ONE (20:06)
[2018-05-29] MEDS ORDERED: Albuterol 2.5 MG/3 ML NEB.SOL* (0.083%) INH PRN (20:16)
[2018-05-29] MEDS ORDERED: Acetaminophen TAB* 325 MG PO PRN ×2 (20:16→22:34)
[2018-05-29] MEDS ORDERED: Ondansetron ODT TAB* 4 MG PO PRN (20:19)
[2018-05-29] MEDS ORDERED: Famotidine IV* 10 MG/ML 2 ML (20 mg) IV ONE (20:31)
[2018-05-29] MEDS ORDERED: KETAMINE HCL* 50 MG/ML 10 ML VIAL ONE (20:41)
[2018-05-29] MEDS ORDERED: fentaNYL* 50 MCG/ML 2 ML VIAL (100 MCG VIAL) ONE (20:41)
[2018-05-29] MEDS ORDERED: Midazolam* 1 MG/ML 2 ML VIAL (2 MG) ONE (20:41)
[2018-05-29] MEDS ORDERED: Famotidine IV* 10 MG/ML 2 ML (20 mg) ONE (20:44)
--- NOTE | 2018-05-29 20:45 | HP ---
H&P (Free Text) History and Physical: PCP: JEFFERY Velez MD Urology: Jaguar Styles MD Date/Time: 05/29/20181999 CC: L flank pain, fever, N/V HPI: Mr Fairbanks is a 62YO diabetic male who reports feeling not well intermittently over the past week, but cannot further characterize this. Today around noon he developed rapid onset of severe L flank pain with fevers, chills , sweats, & N/V starting around 1330. ED evaluation reveals UTI with a 4mm L ureteral stone associated with septic shock (tachycardia, tachypnea, leukopenia , & neutropenia) refractory to IVFs. He is receiving IV ceftriaxone & gentamicin. Dr Jaguar Styles, urology has been consulted by ED and is en route with planned OR CHERYL. He will be admitted to the ICU for further aggressive management as indicated. PMedHx DM2 HTN urolithiasis anxiety/depression BPH s/p TURP Ambulatory Orders Nursing to reconcile. Hydrochlorothiazide TAB* [Hydrodiuril TAB*] 12.5 mg PO QAM 03/12/17 Lisinopril [Lisinopril 40 MG-] 40 mg PO QAM 03/12/17 Metformin ER (NF) 2,500 mg PO QPM 03/12/17 PARoxetine HCL TAB* [Paxil TAB*] 40 mg PO BEDTIME 03/12/17 Tamsulosin CAP* [Flomax CAP*] 0.4 mg PO QPM 03/12/17 glipiZIDE TAB* [Glucotrol TAB*] 10 mg PO BID 03/12/17 Finasteride TAB* [Proscar TAB*] 5 mg PO BEDTIME 11/08/17 Imodium A-D 1 tab PO DAILY 11/12/17 Ibuprofen TAB* [Motrin TAB* 800 MG] 800 mg PO Q8H PRN #90 tab 11/14/17 Liraglutide (NF) [Victoza (NF)] 0.6 mg SUBCUT DAILY #3 ml 11/14/17 Loperamide CAP* [Imodium CAP*] 2 mg PO DAILY cap 11/14/17 Oxybutynin TAB* [Ditropan TAB*] 5 mg PO Q6H PRN #20 tab 11/14/17 oxyCODONE/Acetamin 5/325 MG* [Percocet 5/325 TAB*] 1 tab PO Q4H PRN #30 tab MDD 6 11/14/17 Allergies No Known Allergies Allergy (Verified 05/29/18 16:01) PSurgHx OD cataract extraction R knee ligament repair SocHx: former smoker, 3-4 bourbons/week, denies recreational drugs; lives with his ; full code status FamHx: reviewed & non-contributory to presentation ROS: as above, otherwise reviewed and all were negative vitals: Vital Signs Temp 37.5 C 05/29/18 16:56 Pulse 125 05/29/18 18:25 Resp 23 05/29/18 18:25 BP 92/69 05/29/18 18:25 Pulse Ox 96 05/29/18 18:25 Intake & Output 05/28/18 05/29/18 05/29/18 23:59 11:59 23:59 Intake Total 3100 Balance 3100 Weight 124.738 kg Intake: IV Fluids 3100 Constitutional: normally developed, diaphoretic obese white male in no distress but acutely ill appearing HEENM: atraumatic; sclera/conjunctiva: anicteric/clear; hearing: clinically intact; oropharynx: clear, mucosa tacky Neck: soft tissue: non-tender; thyroid: normal Pulmonary: clear to auscultation bilaterally, good aeration, no accessory muscle use CV: TR/RR, normal S1S2, no carotid bruit, no jugular venous distention, 2+ B DP/ PT, no edema Abdominal: soft, non-distended, non-tender, no rebound/guarding/rigidity, normoactive bowel sounds, no hepatosplenomegaly or masses, minimal L costovertebral angle tenderness Musculoskeletal: general: grossly intact; gait: too acutely ill to safely ambulate Integumental: pale, diffusely markedly diaphoretic Psychiatric orientation: AA&O to PPTS affect: fatigued mood: cooperative eye contact: fair content: reliable responses: timely insight: fair to good Testing: Lab Results 05/29/18 05/29/18 05/29/18 Range/Units 16:11 16:15 16:15 WBC 1.2 L (3.5-10.8) 10^3/ul RBC 5.70 H (4.00-5.40) 10^6/ul Hgb 17.2 (14.0-18.0) g/dl Hct 50 (42-52) % MCV 87 (80-94) fL MCH 30 (27-31) pg MCHC 35 (31-36) g/dl RDW 15 (10.5-15) % Plt Count 155 (150-450) 10^3/ul MPV 8.8 (7.4-10.4) um3 Neut % (Auto) 77.6 (38-83) % Lymph % (Auto) 21.0 L (25-47) % Bonner % (Auto) 0.4 (0-7) % Eos % (Auto) 0.5 (0-6) % Baso % (Auto) 0.5 (0-2) % Absolute Neuts (auto) 1.0 L (1.5-7.7) 10^3/ul Absolute Lymphs (auto) 0.3 L (1.0-4.8) 10^3/ul Absolute Monos (auto) 0 (0-0.8) 10^3/ul Absolute Eos (auto) 0 (0-0.6) 10^3/ul Absolute Basos (auto) 0 (0-0.2) 10^3/ul Absolute Nucleated RBC 0 10^3/ul Nucleated RBC % 0.5 Sodium 139 (135-145) mmol/L Potassium 3.4 L (3.5-5.0) mmol/L Chloride 102 (101-111) mmol/L Carbon Dioxide 24 (22-32) mmol/L Anion Gap 13 H (2-11) mmol/L BUN 22 (6-24) mg/dL Creatinine 1.42 H (0.67-1.17) mg/dL Est GFR ( Amer) 61.3 (>60) Est GFR (Non-Af Amer) 50.7 (>60) BUN/Creatinine Ratio 15.5 (8-20) Glucose 198 H (70-100) mg/dL POC Glucose (mg/dL) (70-100) mg/dL Lactic Acid 4.3 H* (0.5-2.0) mmol/L Calcium 10.1 (8.6-10.3) mg/dL Total Bilirubin 1.10 H (0.2-1.0) mg/dL AST 26 (13-39) U/L ALT 45 (7-52) U/L Alkaline Phosphatase 63 (34-104) U/L C-Reactive Protein 8.61 H (<8.01) mg/L Total Protein 7.0 (6.4-8.9) g/dL Albumin 4.4 (3.2-5.2) g/dL Globulin 2.6 (2-4) g/dL Albumin/Globulin Ratio 1.7 (1-3) Lipase 161 H (11.0-82.0) U/L Urine Color Urine Appearance Urine pH (5-9) Ur Specific [place] (1.010-1.030) Urine Protein (Negative) Urine Ketones (Negative) Urine Blood (Negative) Urine Nitrate (Negative) Urine Bilirubin (Negative) Urine Urobilinogen (Negative) Ur Leukocyte Esterase (Negative) Urine WBC (Auto) (Absent) Urine RBC (Auto) (Absent) Ur Squamous Epith Cells (Absent) Urine Bacteria (Absent) Urine Sperm (Absent) Urine Glucose (Negative) 05/29/18 05/29/18 Range/Units 19:15 20:10 WBC (3.5-10.8) 10^3/ul RBC (4.00-5.40) 10^6/ul Hgb (14.0-18.0) g/dl Hct (42-52) % MCV (80-94) fL MCH (27-31) pg MCHC (31-36) g/dl RDW (10.5-15) % Plt Count (150-450) 10^3/ul MPV (7.4-10.4) um3 Neut % (Auto) (38-83) % Lymph % (Auto) (25-47) % Bonner % (Auto) (0-7) % Eos % (Auto) (0-6) % Baso % (Auto) (0-2) % Absolute Neuts (auto) (1.5-7.7) 10^3/ul Absolute Lymphs (auto) (1.0-4.8) 10^3/ul Absolute Monos (auto) (0-0.8) 10^3/ul Absolute Eos (auto) (0-0.6) 10^3/ul Absolute Basos (auto) (0-0.2) 10^3/ul Absolute Nucleated RBC 10^3/ul Nucleated RBC % Sodium (135-145) mmol/L Potassium (3.5-5.0) mmol/L Chloride (101-111) mmol/L Carbon Dioxide (22-32) mmol/L Anion Gap (2-11) mmol/L BUN (6-24) mg/dL Creatinine (0.67-1.17) mg/dL Est GFR ( Amer) (>60) Est GFR (Non-Af Amer) (>60) BUN/Creatinine Ratio (8-20) Glucose (70-100) mg/dL POC Glucose (mg/dL) 192 H (70-100) mg/dL Lactic Acid (0.5-2.0) mmol/L Calcium (8.6-10.3) mg/dL Total Bilirubin (0.2-1.0) mg/dL AST (13-39) U/L ALT (7-52) U/L Alkaline Phosphatase (34-104) U/L C-Reactive Protein (<8.01) mg/L Total Protein (6.4-8.9) g/dL Albumin (3.2-5.2) g/dL Globulin (2-4) g/dL Albumin/Globulin Ratio (1-3) Lipase (11.0-82.0) U/L Urine Color Yellow Urine Appearance Cloudy Urine pH 5.0 (5-9) Ur Specific [place] 1.012 (1.010-1.030) Urine Protein 2+(100 mg/dl) A (Negative) Urine Ketones Negative (Negative) Urine Blood 3+ A (Negative) Urine Nitrate Positive A (Negative) Urine Bilirubin Negative (Negative) Urine Urobilinogen Negative (Negative) Ur Leukocyte Esterase 2+ A (Negative) Urine WBC (Auto) 3+(>20/hpf) A (Absent) Urine RBC (Auto) 3+(>10/hpf) A (Absent) Ur Squamous Epith Cells Present A (Absent) Urine Bacteria Absent (Absent) Urine Sperm Present A (Absent) Urine Glucose 1+(50 mg/dl) A (Negative) ECG, personally reviewed: sinus tachycardia rate 134 CT abd/pel WO, personally reviewed: IMPRESSION: 1. THERE IS A 4 MM CALCULUS IN THE MID LEFT URETER CAUSING [id number] HYDRONEPHROSIS. THERE ARE A COUPLE ADDITIONAL SMALL PUNCTATE LEFT RENAL CALCULI. 2. HEPATOMEGALY AND HEPATIC STEATOSIS. Impression: 62YO diabetic male presenting in septic shock 2nd infected L ureteral stone DIAGNOSIS & PLAN Primary septic shock (tachycardia, tachypnea, leuko/neutropenia) 2nd infected L ureteral stone : ICU admission : blood & urine CXs : Jaguar Styles MD urology notified by ED & en route for planned OR : aggressive IVFs : may need pressors : supportive care lactic acidosis : IVFs, trend JYOTI : IVFs, trend : hold metformin & lisinopril : avoid nephrotoxic agents Secondary DM2 : check A1c : NPO : basal/correctional insulin HTN : hold anti-hypertensives in setting of septic shock : monitor anxiety/depression : review meds once reconciled BPH : s/p TURP : review meds once reconciled Admission Rational: inpatient ICU for patient at significant risk of morbidity/ mortality requiring OR, IVFs & IV ABX; inappropriate for outpatient setting DVTp: SCDs & heparin SQ Code Status: full HCP:
[2018-05-29] MEDS ORDERED: Insulin LISPRO* 1 UNITS UNIT SUBCUT SCH (21:00)
[2018-05-29] MEDS ORDERED: Gentamicin ADULT (*) 180 MG in NS 0.9% 100 ML* 100 ML IVPB ONE (21:00)
[2018-05-29] MEDS ORDERED: Iohexol 180 (CONTRAST) 10 ML SDV IV ONE (21:16)
--- NOTE | 2018-05-29 21:31 | ED ---
Azalia Bains Devyn, scribed for Benjamin Longo MD on 05/29/18 at 2001 . Back Pain - HPI Summary HPI Summary: This patient is a 62 year old M presenting to [facility] accompanied by a woman with a chief complaint of left flank/back pain since noon today. Pt states that the pain radiates downward but not into the groin. A recent BM alleviated much of the left side pain, but right side pain still present. The patient rates the pain 6/10 in severity. Patient reports Nausea, intestinal cramps. Patient denies groin pain. Pt was vomiting in his room upon arrival to [facility]. Pt took Percocet today. - History of Current Complaint Chief Complaint: EDFlankPain Stated Complaint: FLANK PAIN/NAUSEA Time Seen by Provider: 05/29/18 16:09 Hx Obtained From: Patient Onset/Duration: Sudden Onset, Lasting Hours - noon Onset/Duration: Started Hours Ago - noon Timing: Constant Back Pain Location: Is Discrete @ - lower back, Radiates To - downward Severity Currently: Moderate Pain Intensity: 6 Pain Scale Used: 0-10 Numeric - Allergies/Home Medications Allergies/Adverse Reactions: Allergies Allergy/AdvReac Type Severity Reaction Status Date / Time No Known Allergies Allergy Verified 05/29/18 16:01 PMH/Surg Hx/FS Hx/Imm Hx Endocrine/Hematology History: Reports: Hx Diabetes - type 2 Denies: Hx Sickle Cell Disease Cardiovascular History: Reports: Hx Hypertension - UNDER CONTROL WITH MEDICATION Denies: Hx Pacemaker/ICD Respiratory History: Reports: Hx Sleep Apnea, Other Respiratory Problems/ Disorders - legionell pneumonia 02/2017 resolved GI History: Reports: Hx Irritable Bowel History: Reports: Other Problems/Disorders - enlarged prostate Denies: Hx Renal Disease Musculoskeletal History: Reports: Hx Arthritis - HIPS AND KNEES Sensory History: Reports: Hx Cataracts - LEFT EYE Denies: Hx Contacts or Glasses, Hx Hearing Aid Opthamlomology History: Reports: Hx Cataracts - LEFT EYE Denies: Hx Contacts or Glasses Neurological History: Reports: Other Neuro Impairments/Disorders - 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 RIGHT KNEE REPAIR 03/2017 Hx Anesthesia Reactions: No Infectious Disease History: No Infectious Disease History: Denies: Traveled Outside the [place] in Last 30 Days - Family History Known Family History: Positive: Cardiac Disease - Social History Alcohol Use: Weekly Substance Use Type: Reports: None Smoking Status (MU): Former Smoker Amount Used/How Often: smoked for 10 years 1ppd Review of Systems Positive: Abdominal Pain - intestinal cramping, Vomiting, Nausea Negative: pain - groin All Other Systems Reviewed And Are Negative: Yes Physical Exam - Summary Physical Exam Summary: Appearance: Moderate distress, ill-appearing Skin: warm, dry, reflects adequate perfusion Head/face: normal Eyes: EOMI, MAREN ENT: normal Neck: supple, non-tender Respiratory: CTA, breath sounds present Cardiovascular: RRR, pulses symmetrical Abdomen: non-tender, soft. No rebound, no guarding. Bowel Sounds: present Musculoskeletal: normal, strength/ROM intact. No CVA tenderness. No muscular tenderness lumbar area. Pain in the hips. Neuro: normal, sensory motor intact, A&Ox3 Triage Information Reviewed: Yes Vital Signs On Initial Exam: Initial Vitals Temp Pulse Resp BP Pulse Ox 97.6 F 141 20 138/94 100 05/29/18 15:56 05/29/18 15:56 05/29/18 15:56 05/29/18 15:56 05/29/18 15:56 Vital Signs Reviewed: Yes Diagnostics - Vital Signs Vital Signs Temp Pulse Resp BP Pulse Ox 05/29/18 16:29 16 05/29/18 15:56 97.6 F 141 20 138/94 100 - Laboratory Lab Results: Lab Results 05/29/18 Range/Units 16:11 WBC 1.2 L (3.5-10.8) 10^3/ul RBC 5.70 H (4.00-5.40) 10^6/ul Hgb 17.2 (14.0-18.0) g/dl Hct 50 (42-52) % MCV 87 (80-94) fL MCH 30 (27-31) pg MCHC 35 (31-36) g/dl RDW 15 (10.5-15) % Plt Count 155 (150-450) 10^3/ul MPV 8.8 (7.4-10.4) um3 Neut % (Auto) 77.6 (38-83) % Lymph % (Auto) 21.0 L (25-47) % Bailey % (Auto) 0.4 (0-7) % Eos % (Auto) 0.5 (0-6) % Baso % (Auto) 0.5 (0-2) % Absolute Neuts (auto) 1.0 L (1.5-7.7) 10^3/ul Absolute Lymphs (auto) 0.3 L (1.0-4.8) 10^3/ul Absolute Monos (auto) 0 (0-0.8) 10^3/ul Absolute Eos (auto) 0 (0-0.6) 10^3/ul Absolute Basos (auto) 0 (0-0.2) 10^3/ul Absolute Nucleated RBC 0 10^3/ul Nucleated RBC % 0.5 Result Diagrams: 05/29/18 16:11 05/29/18 16:15 Lab Statement: Any lab studies that have been ordered have been reviewed, and results considered in the medical decision making process. - CT abd/pelvis CT Interpretation Completed By: Radiologist - IMPRESSION: 1. THERE IS A 4 MM CALCULUS IN THE MID LEFT URETER CAUSING [id number] HYDRONEPHROSIS. THERE ARE A COUPLE ADDITIONAL SMALL PUNCTATE LEFT RENAL CALCULI. 2. HEPATOMEGALY AND HEPATIC STEATOSIS. ER Physician has reviewed this report - EKG 16:20 Cardiac Rate: Tachycardia - 134 bpm EKG Rhythm: Sinus Tachycardia ST Segment: Non-Specific EKG Interpretation: Normal axis, RBBB Re-Evaluation - Re-Evaluation First Eval Re-Evaluation Time: 17:06 - Patient's states their pain is resolved. Patient is feeling better Change: Improved Second Eval Re-Evaluation Time: 19:30 - Patient feels okay, still tachycardic Back Pain Course/Dx - Course Course Of Treatment: Patient presents with severe flank pain, low back pain and tachycardia. This pain was treated and he experienced significant relief. However, his tachycardia persisted. We continued to wait for his urinalysis. He had no other septic source other than potential for kidney stone. The CT returned positive for distal ureteral calculus. Again, the urine was not resulted. He remained tachycardic and continue to give fluids. His lactate returned high but his WBC was low at 1.2. He has no history of leukopenia/ neutropenia but does have a history of lowish WBC at about 5. Finally, the urine resulted positive for infection. 2 g of IV Rocephin was given as well as additional fluids to make up 30 mL per kilo. His blood pressures are running around 100 systolic. He began to get nauseous and was treated for that. The urologist was contacted with this stone as a possible nidus. Urology will come , evaluate the patient and take to the OR. Hospitalist have been contacted for evaluation, saw the patient bedside and will be the admitting physician. - Diagnoses Differential Diagnosis/HQI/PQRI: Positive: Other - Chronic back pain exacerbation, sciatica, kidney stone, UTI, prostatitis, diverticulitis, opiate pain medicine withdrawal Provider Diagnoses: Renal colic on left side, UTI (urinary tract infection), Severe sepsis, Renal lithiasis - Provider Notifications Discussed Care Of Patient With: Dc Bowers Time Discussed With Above Provider: 07:51 Instructed by Provider To: Admit As Inpatient - Critical Care Time Critical Care Time: 30-74 min - CCT is EXCLUSIVE of separately billable procedures. Discharge - Sign-Out/Discharge Documenting (check all that apply): Discharge/Admit/Transfer - admit - Discharge Plan Condition: Guarded Disposition: ADMITTED TO [facility] Referrals: Sunny Velez MD [Primary Care Provider] - - Billing Disposition and Condition Condition: GUARDED Disposition: Admitted to [facility] Consult Consult: Dr. Styles, 20:00, will visit the patient in [facility] The documentation as recorded by the Azalia cortes Devyn accurately reflects the service I personally performed and the decisions made by , Benjamin Longo MD.
[2018-05-29] MEDS ORDERED: Dexamethasone IV* 4 MG/ML 1 ML (4 MG) ONE (21:53)
[2018-05-29] MEDS ORDERED: Propofol* 10 MG/ML 20 ML BTL IV PUSH ONE (21:53)
[2018-05-29] MEDS ORDERED: Phenylephrine INJ* 10 MG/ML 1 ML VIAL (10 MG) ONE (21:53)
[2018-05-29] MEDS ORDERED: Lidocaine 2% PF * 5 ML VIAL ONE (22:07)
[2018-05-29] MEDS ORDERED: Levalbuterol 0.63MG/3ML NEB* UNIT OF USE INH ONE (22:33)
[2018-05-29] MEDS ORDERED: Naloxone* 0.4 MG/ML 1 ML VIAL IV PRN (22:34)
[2018-05-29] MEDS ORDERED: Levalbuterol 0.63MG/3ML NEB* UNIT OF USE INH PRN (22:34)
[2018-05-29] MEDS ORDERED: HYDROmorphone INJ* 0.5 MG/0.5 ML SYRINGE IV PRN (22:34)
[2018-05-29] MEDS ORDERED: DiMENhydriNATE IV* 50 MG/ML VIAL IV PUSH PRN (22:34)
--- NOTE | 2018-05-29 23:02 | CONS ---
CC: Dr. Sunny Velez. * UROLOGY CONSULTATION: DATE OF CONSULT: 05/29/18 REQUESTING PHYSICIAN: Dr. Longo. DIAGNOSES: 1. Calculus, left ureter. 2. Septic shock. PLANNED PROCEDURE: Today is urgent left stent insertion (to be followed in the near future by left ureteroscopy). HISTORY OF PRESENT ILLNESS/HOSPITAL COURSE: Tao Fairbanks is a 62-year-old diabetic who presented to the emergency room earlier today with left flank pain and nausea and vomiting. I was called by the emergency room at 1950 hours with the report that the patient was hypotensive and tachycardic, and the CT scan had revealed an obstructing 4-mm stone in left ureter. In addition, he has a history of diabetes mellitus and on review of labs, he was also noted to be neutropenic. The plan is for urgent left stent insertion (I have requested the Operating Room for OR as soon as available) to be followed at some point in the future by a left ureteroscopy, laser, and stent replacement once the infectious process has been controlled. PAST MEDICAL HISTORY: Significant for: 1. Hypertension. 2. Type 2 diabetes mellitus. 3. History of BPH, status post transurethral resection of prostate. 4. History of renal calculi. 5. History of depression and anxiety. PAST SURGICAL HISTORY: Significant for transurethral resection of prostate, a surgery for cataract, and right knee ligament surgery. MEDICATIONS: Prior to admission include: 1. Lisinopril 40 mg daily. 2. Metformin 2500 mg daily. 3. Hydrochlorothiazide 12.5 mg daily. 4. Flomax 0.4 mg daily. 5. Proscar 5 mg daily. 6. Glipizide 10 mg twice a day. 7. Paroxetine 40 mg daily. 8. Ibuprofen p.r.n. 9. Victoza 0.6 mg subcutaneously daily. 10. Oxybutynin 5 mg q. 6 hours p.r.n. 11. Oxycodone p.r.n. ALLERGIES: No known drug allergies. REVIEW OF SYSTEMS: He denies any chest pain or shortness of breath. PHYSICAL EXAM: Reveals a pleasant, overweight, middle-aged gentleman. Blood pressure is 92/69, heart rate 125/minute, temperature 37.5, oxygen saturation 96 %. Cardiovascular: Regular rate and rhythm, tachycardic. Lungs are clear bilaterally. Abdomen is soft with left flank tenderness. DIAGNOSTIC STUDIES/LAB DATA: Review of labs reveals a white count of 1.2 (not on any chemotherapy or any immunosuppressive drugs), hemoglobin and hematocrit are 17.2 and 50 respectively, with a platelet count of 155,000. Sodium is 139, potassium is 3.4, BUN and creatinine are 22 and 1.42. Review of urinalysis reveals specific gravity of 1.012, pH of 5.0, with 3+ rbc' s and 3+ wbc's, 2+ leukocyte esterase, although bacteria are reported absent. I reviewed the CT scan, which reveals a 4-mm calculus in the mid left ureter with left hydronephrosis, with additional small left renal calculi. IMPRESSION AND PLAN: I had a detailed discussion with the patient and his and with the hospitalist regarding the urgency in trying to get a left stent insertion done because of his clinical findings of septic shock and I have conveyed the urgency of this also to the operating room personnel. Plan is for urgent left stent insertion (to be followed in the near future by left ureteroscopy, laser, and stent replacement). [id number]/[facility] #: [id number] [facility]OSPITALNoah
--- NOTE | 2018-05-29 23:19 | OP ---
CC: Dr. Demian Roman; Dr. Bowers * DATE OF OPERATION: 05/29/18 - ROOM #ICU-01 DATE OF : 57 SURGEON: Shad Styles MD ANESTHESIOLOGIST: Dr. Ho. ANESTHESIA: General. PRE-OP DIAGNOSES: 1. Left hydronephrosis. 2. Sepsis. POST-OP DIAGNOSES: 1. Left hydronephrosis. 2. Sepsis. OPERATIVE PROCEDURES: 1. Cystoscopy. 2. Left retrograde pyelogram. 3. Left ureteral calculus manipulation. 4. Left stent insertion. STENT USED: 7-Bahraini stent, left ureter. INDICATIONS: Tao Fairbanks is a 62-year-old diabetic who was evaluated in the emergency room for left flank pain and urosepsis. He is being brought in for urgent left stent insertion. POSTOPERATIVE CONDITION: Stable. SPECIMENS: Urine from left kidney for culture and sensitivity. DESCRIPTION OF PROCEDURE: After induction of general anesthesia, the patient was placed in dorsal lithotomy position. Initial cystoscopy revealed a normal- appearing urethra. The patient is status post transurethral resection of prostate, but there was residual prostate tissue noted especially in the median lobe area. The bladder was examined. There was no evidence of any suspicious bladder lesions noted. A guidewire was introduced into the left ureter. In the mid left ureter, the calculus was noted to be impacted and it was carefully and gently manipulated proximally to disimpact it using the open ended catheter. Once this was done, the wire was advanced proximally and the open ended catheter was advanced into the renal pelvis. Urine was obtained and sent for culture. A 7-Bahraini stent was introduced and positioned under fluoroscopy with good proximal and distal positioning obtained. PLAN: The plan is to obtain an x-ray in the next 24 hours and then decide on the next procedure in a week or two, which would either be left ureteroscopy with laser or shockwave lithotripsy depending on the eventual location of the calculus. [id number]/[facility] #: [id number] MTDD
[2018-05-30 00:13] LABS: INR 0.98 (0.77-1.02)
[2018-05-30 00:19] LABS: EGFR Non-African American 46.2 (>60)
[2018-05-30] MEDS: Docusate CAP* 100 MG PO SCH ×3 (00:29→20:30)
[2018-05-30 00:37] LABS: ABS Basophils 0 10^3/ul (0-0.2); ABS Eosinophils 0 10^3/ul (0-0.6); ABS Lymphocytes 0.3 10^3/ul (1.0-4.8); ABS Monocytes 0.2 10^3/ul (0-0.8); ABS Neutrophils 8.8 10^3/ul (1.5-7.7); Hematocrit 43 % (42-52); Hemoglobin 14.3 g/dl (14.0-18.0); Mean Corpuscular HGB Conc 33 g/dl (31-36); Mean Corpuscular Hemoglobin 30 pg (27-31); Mean Corpuscular Volume 90 fL (80-94); Mean Platelet Volume 9.6 um3 (7.4-10.4); Platelet Count 109 10^3/ul (150-450); Red Cell Distribution Width 15 % (10.5-15); White Blood Count 9.2 10^3/ul (3.5-10.8)
[2018-05-30] MEDS ORDERED: Dextrose 50% Syringe 50 ML* 25 GM/50 ML SYRINGE IV PUSH PRN (00:37)
[2018-05-30] MEDS: Insulin GLARGINE(*) 1 UNITS UNIT SUBCUT SCH ×2 (00:41→20:30)
[2018-05-30] MEDS ORDERED: oxyCODONE TAB* 5 MG TAB ONE (00:43)
[2018-05-30] MEDS: NS 0.9% 1000 ML* 1,000 ML IV SCH ×5 (00:45→20:37)
[2018-05-30] MEDS: oxyCODONE TAB* 5 MG TAB PO PRN ×2 (00:45→12:57)
[2018-05-30] MEDS: Pantoprazole IV* 40 MG IV SCH ×2 (00:46→09:50)
[2018-05-30 01:00] LABS: ABS Nucleated RBC 0 10^3/ul; Eosinophil % 0.2 % (0-6); Lymphocyte % 2.7 % (25-47); Nucleated Red Blood Cells % 0.1
[2018-05-30 04:51] LABS: Hematocrit 40 % (42-52); Hemoglobin 13.5 g/dl (14.0-18.0); Mean Corpuscular HGB Conc 34 g/dl (31-36); Mean Corpuscular Hemoglobin 30 pg (27-31); Mean Corpuscular Volume 89 fL (80-94); Mean Platelet Volume 9.4 um3 (7.4-10.4); Platelet Count 100 10^3/ul (150-450); Red Cell Distribution Width 15 % (10.5-15); White Blood Count 14.9 10^3/ul (3.5-10.8)
[2018-05-30 04:59] LABS: ABS Basophils 0 10^3/ul (0-0.2); ABS Eosinophils 0 10^3/ul (0-0.6); ABS Lymphocytes 0.4 10^3/ul (1.0-4.8); ABS Monocytes 0.8 10^3/ul (0-0.8); ABS Neutrophils 13.3 10^3/ul (1.5-7.7)
[2018-05-30 05:08] LABS: EGFR Non-African American 39.3 (>60)
[2018-05-30 05:26] LABS: ABS Basophils 0 10^3/ul (0-0.2); ABS Neutrophils 8.2 10^3/ul (1.5-7.7); Monocytes % 2 % (0-7)
[2018-05-30] MEDS: Heparin VIAL(*) 5000 UNITS/ML VIAL (FIVE THOUSAND) SUBCUT SCH ×3 (06:00→20:32)
--- NOTE | 2018-05-30 07:32 | RAD ---
INDICATION: Retrograde pyelogram: Septic shock secondary to infected ureterolith, left lower quadrant, flank pain COMPARISONS: CT dated May 29, 2018 TECHNIQUE: Fluoroscopy was provided for a retrograde pyelogram and stent placement. Total fluoroscopy time is: 12 seconds FINDINGS: Spot images demonstrate contrast within the renal collecting system. A ureteral stent is noted. IMPRESSION: FLUOROSCOPY WAS PROVIDED FOR A RETROGRADE PYELOGRAM AND STENT PLACEMENT CPT II Codes: G9500
[2018-05-30] MEDS: Insulin LISPRO* 1 UNITS UNIT SUBCUT SCH ×7 (09:51→20:31)
--- NOTE | 2018-05-30 10:57 | RAD ---
INDICATION: Septic shock secondary to infected ureteral COMPARISON: Previous day retrograde pyelogram that appears anatomic placement of a left ureteral stent TECHNIQUE: 2 views the abdomen were obtained. FINDINGS: The left ureteral stent is anatomically aligned. A Tariq catheter appears to be in position as well. There is no large radiographically apparent renal stone identified. IMPRESSION:ANATOMIC ALIGNMENT OF LEFT URETERAL STENT AND TARIQ CATHETER.
--- NOTE | 2018-05-30 17:44 | PN ---
Subjective Date of Service: 05/30/18 Interval History: Interviewed and examined patient at bedside; Discussed case with Dr. Bowers; Reviewed previous notes and radiology results; patient doing a lot better than overnight -- still "wiped out" transfer to the floor for ongoing antibiotics. re-evaluate frequently. Family History: Unchanged from Admission Social History: Unchanged from Admission Past Medical History: Unchanged from Admission Objective Active Medications: Acetaminophen (Tylenol Tab*) 650 mg PO Q6H PRN PRN Reason: FEVER/PAIN Albuterol (Ventolin 2.5 Mg/3 Ml Neb.Blanquita*) 2.5 mg INH Q2H PRN PRN Reason: SOB/WHEEZING Last Admin: 05/30/18 13:37 Dose: 2.5 mg Dextrose (D50w Syringe 50 Ml*) 12.5 gm IV PUSH .FOR FS < 60 - SS PRN PRN Reason: FS < 60 Docusate Sodium (Colace Cap*) 200 mg PO BID [facility] Last Admin: 05/30/18 09:53 Dose: Not Given Heparin Sodium (Porcine) (Heparin Vial(*)) 5,000 units SUBCUT Q8HR [facility] Last Admin: 05/30/18 13:57 Dose: 5,000 units Sodium Chloride (Ns 0.9% 1000 Ml*) 1,000 mls @ 200 mls/hr IV PER RATE [facility] Last Admin: 05/30/18 15:27 Dose: 200 mls/hr Ceftriaxone Sodium 2,000 mg/ (Sodium Chloride) 50 mls @ 200 mls/hr IVPB Q24H [facility] Insulin Glargine (Lantus(*)) 25 units 0.2 units/kg (25 units) SUBCUT 2100 [facility] Last Admin: 05/30/18 00:41 Dose: Not Given Insulin Human Lispro (Humalog*) 0 units SUBCUT AC [facility]; Protocol Last Admin: 05/30/18 12:56 Dose: 6 units Insulin Human Lispro (Humalog*) 0 units SUBCUT ACHS [facility]; Protocol Last Admin: 05/30/18 12:57 Dose: Not Given Levalbuterol HCl (Xopenex 0.63mg/3ml Neb*) 0.63 mg INH ONCE PRN PRN Reason: SOB/WHEEZING Stop: 05/30/18 22:33 Last Admin: 05/29/18 22:40 Dose: 0.63 mg Ondansetron HCl (Zofran Odt Tab*) 4 mg PO Q6H PRN PRN Reason: n/v Oxycodone HCl (Roxycodone Tab*) 5 mg PO Q4H PRN PRN Reason: PAIN Last Admin: 05/30/18 12:57 Dose: 5 mg Pantoprazole Sodium (Protonix Iv*) 40 mg IV DAILY JEANETH Last Admin: 05/30/18 09:50 Dose: 40 mg Vital Signs - 8 hr 05/30/18 05/30/18 05/30/18 09:42 10:00 11:00 Temperature Pulse Rate 103 Respiratory 23 30 24 Rate Blood Pressure 112/81 120/85 110/80 (mmHg) O2 Sat by Pulse 97 Oximetry 05/30/18 05/30/18 05/30/18 11:44 12:00 13:00 Temperature 98.8 F Pulse Rate 101 105 Respiratory 25 32 Rate Blood Pressure 116/77 106/81 (mmHg) O2 Sat by Pulse 96 96 Oximetry Oxygen Devices in Use Now: OxyMask Appearance: NAD Eyes: No Scleral Icterus Ears/Nose/Mouth/Throat: NL Teeth, Lips, Gums Neck: NL Appearance and Movements; NL JVP Respiratory: Symmetrical Chest Expansion and Respiratory Effort Cardiovascular: NL Sounds; No Murmurs; No JVD Abdominal: NL Sounds; No Tenderness; No Distention Lymphatic: No Cervical Adenopathy, No Axillary Adenopathy Extremities: No Edema Skin: No Rash or Ulcers Neurological: Alert and Oriented x 3 Lines/Tubes/Other Access: Clean, Dry and Intact Ramos - removed 05/30/2018. Nutrition: Taking PO's Result Diagrams: 05/30/18 04:40 05/30/18 04:40 Additional Lab and Data: . Microbiology and Other Data: Microbiology 05/29/18 19:15 Urine Culture - Preliminary Urine Gram Negative Bacilli 05/29/18 23:35 Nasal Screen MRSA (PCR) - Final Nasal Mrsa Not Detected Assess/Plan/Problems-Billing . Assessment: 62 yo man with SEPTIC SHOCK (tachycardia, tachypnea, leuko/neutropenia) secondary to infected left ureteral stone. s/p urologic surgery with stenting of stone and relief of obstruction o/n 2017 Acute Renal Failure / Renal Insufficiency Laboratory Tests 11/12/17 05/29/18 05/29/18 16:40 16:15 23:55 Creatinine 0.98 1.42 H 1.54 H 05/30/18 04:40 Creatinine 1.77 H Type II Diabetes. Hypertension Anxiety & Depression Benign Prostatic Hypertrophy - Patient Problems (1) Septic shock Current Visit: Yes Status: Acute Priority: High Code(s): A41.9 - SEPSIS, UNSPECIFIED ORGANISM; R65.21 - SEVERE SEPSIS WITH SEPTIC SHOCK (2) Ureteral calculus Current Visit: Yes Status: Acute Priority: High (3) Ureteric colic Current Visit: Yes Status: Acute Priority: High Code(s): N23 - UNSPECIFIED RENAL COLIC (4) Type 2 diabetes mellitus Current Visit: No Status: Acute Priority: Medium Comment:
[2018-05-30 18:33] LABS: Hematocrit 40 % (42-52); Hemoglobin 13.3 g/dl (14.0-18.0); Mean Corpuscular HGB Conc 34 g/dl (31-36); Mean Corpuscular Hemoglobin 30 pg (27-31); Mean Corpuscular Volume 88 fL (80-94); Mean Platelet Volume 9.6 um3 (7.4-10.4); Platelet Count 109 10^3/ul (150-450); Red Blood Count 4.47 10^6/ul (4.00-5.40); Red Cell Distribution Width 15 % (10.5-15); White Blood Count 15.5 10^3/ul (3.5-10.8)
[2018-05-30 18:56] LABS: EGFR Non-African American 56.1 (>60)
[2018-05-30 19:39] LABS: ABS Basophils 0 10^3/ul (0-0.2); ABS Eosinophils 0 10^3/ul (0-0.6); ABS Lymphocytes 0.6 10^3/ul (1.0-4.8); ABS Monocytes 0.7 10^3/ul (0-0.8); ABS Neutrophils 14.2 10^3/ul (1.5-7.7); ABS Nucleated RBC 0 10^3/ul; Nucleated Red Blood Cells % 0
[2018-05-30] MEDS: cefTRIAXone VIAL(*) 2,000 MG in NS 0.9% 50 ML* 50 ML IVPB SCH (20:30)
[2018-05-30] MEDS ORDERED: cefTRIAXone VIAL(*) 2,000 MG in NS 0.9% 100 ML* 100 ML IVPB SCH (20:44)
[2018-05-31] MEDS: cefTRIAXone VIAL(*) 2,000 MG in NS 0.9% 50 ML* 50 ML IVPB SCH (02:42)
[2018-05-31] MEDS: NS 0.9% 1000 ML* 1,000 ML IV SCH ×2 (02:55→09:31)
[2018-05-31] MEDS: Heparin VIAL(*) 5000 UNITS/ML VIAL (FIVE THOUSAND) SUBCUT SCH ×2 (05:17→13:29)
[2018-05-31] MEDS: Insulin LISPRO* 1 UNITS UNIT SUBCUT SCH ×4 (08:20→12:40)
[2018-05-31] MEDS: Docusate CAP* 100 MG PO SCH (08:32)
[2018-05-31] MEDS: Pantoprazole IV* 40 MG IV SCH (08:35)
[2018-05-31] MEDS ORDERED: NS 0.9% 1000 ML* 1,000 ML IV ONE (10:44)
[2018-05-31] MEDS: oxyCODONE TAB* 5 MG TAB PO PRN (10:46)
[2018-05-31 11:33] VITALS: BP 142/88
--- NOTE | 2018-06-01 06:28 | PN ---
Hospitalist Progress Note Date of Service: 05/31/18 . HOSPITALIST DISCHARGE NOTE: See dc instructions and summary by me. Patient stable for dc dc instructions reviewed with the patient at the bedside. DC patient home today.
--- NOTE | 2018-06-01 16:01 | DS ---
CC: Dr. Velez; Dr. Styles * DISCHARGE SUMMARY: DATE OF ADMISSION: 05/29/18 DATE OF DISCHARGE: 05/31/18 PRIMARY CARE PROVIDER: Dr. Sunny Velez. UROLOGIST: Dr. Styles. STATUS DURING HOSPITALIZATION: Inpatient. PRINCIPAL DISCHARGE DIAGNOSES: 1. Obstructive left ureteral calculus with left hydronephrosis. 2. Escherichia coli. 3. Septicemia. 4. Septic shock. SECONDARY DIAGNOSES: 1. Type 2 diabetes - [id number]. 2. Hypertension. 3. History of urolithiasis. 4. Anxiety/depression. 5. Benign prostatic hypertrophy, status post TURP. DISCHARGE MEDICATION REGIMEN: 1. Doxycycline 100 mg by mouth twice daily for 2 weeks. Continue other medications includin. Hydrochlorothiazide 12.5 mg by mouth daily. 2. Lisinopril 40 mg by mouth daily. 3. Metformin extended release 2500 mg by mouth at night. 4. Paxil 40 mg by mouth at bedtime. 5. Flomax 0.4 mg by mouth at bedtime. 6. Glipizide 10 mg by mouth twice daily. 7. Finasteride/Proscar 5 mg by mouth at bedtime. 8. Imodium A-D 1 tablet by mouth daily. 9. Ibuprofen 800 mg every 8 hours p.r.n. pain/fever. 10. Victoza 0.6 mg subcu daily. 11. Loperamide/Imodium 2 mg by mouth daily p.r.n. 12. Oxybutynin 5 mg q.6 hours p.r.n. HISTORY OF PRESENT ILLNESS AND HOSPITAL COURSE: Please see the H and P by Dr. Dc Bowers on 05/29/18 as well as the Urology consultation and procedural report by Dr. Shad Styles. In brief, Mr. Fairbanks is a 62-year-old diabetic man, who felt poorly over the past week, but could not characterize his illness. He developed the rapid onset of severe left flank pain the day of admission with fevers, chills, and sweats and nausea and vomiting in the afternoon. The patient came to the emergency room and the patient had a urinary tract infection with a grossly abnormal UA as well as a 4 mm left ureteral stone associated with septic shock including tachycardia, tachypnea, leukopenia, and neutropenia that was refractory to intravenous fluids. The patient got IV ceftriaxone and gentamicin and was urgently taken to the cystoscopy suite. The patient was found to have left hydronephrosis and pyelonephritis and the stone was gently manipulated and stented and the patient did remarkably well. The patient continued on IV antibiotics for the next 36 hours. He was taken out of the ICU and placed on the floor. He was ambulating independently, he was showering and felt subjectively much better than at admission. The patient was stable and expressing interest for discharge on 05/31/18. I met with the patient and his and he was asking when he could go back to work. I asked him to take at least 1 or 2 days off. 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 I advised low impact and low levels of exertion only and that he had a serious infection, the patient verbalized understanding of that instruction. He will continue a 2-week course of antibiotics and should follow up with Dr. Styles, who is going to reach out to him for next steps regarding the stone. He was given careful return to ED instructions and agreed to come back to the hospital for any worrisome symptoms including, but not limited to, continued fevers, flank pain, hematuria, nauseousness, vomiting, abdominal pain, or any other worrisome symptoms associated with his illness. TIME SPENT: Total time taken to the discharge Mr. Fairbanks was 40 minutes, greater than half the time spent at the bedside explaining the discharge instructions. CONDITION ON DISCHARGE: Stable. [id number]/CPS #: [id number] MTDD
== END 2018-05-31 15:18 | disposition home or self-care (01) | DRG 720 ==
LOC: ED 15:55 → ICU 20:12 → MEDTELE 05-30 12:34
PROVIDERS: ADMIT Hospitalist; ATTEND Internal Medicine
PROC: BT1FYZZ Fluoroscopy of Left Kidney, Ureter and Bladder using Other Contrast (ICD-10-PCS; 2018-05-29)
PROC: 0T778DZ Dilation of Left Ureter with Intraluminal Device, Via Natural or Artificial Opening Endoscopic (ICD-10-PCS; principal; 2018-05-29 21:29)
DX: A41.9 Sepsis, unspecified organism (principal); R65.21 Severe sepsis with septic shock; N17.9 Acute kidney failure, unspecified; N13.6 Pyonephrosis; E87.2 Acidosis; B96.20 Unspecified Escherichia coli [E. coli] as the cause of diseases classified elsewhere; E11.9 Type 2 diabetes mellitus without complications; I10 Essential (primary) hypertension; F41.8 Other specified anxiety disorders; N40.0 Benign prostatic hyperplasia without lower urinary tract symptoms; Z79.84 Long term (current) use of oral hypoglycemic drugs; Z79.1 Long term (current) use of non-steroidal anti-inflammatories (NSAID); Z79.891 Long term (current) use of opiate analgesic; Z79.899 Other long term (current) drug therapy; Z87.891 Personal history of nicotine dependence
CPT/HCPCS: 36415; 74018; 74176; 74420; 80048; 80053; 81003; 81015; 82565; 83036; 83605; 83690; 84520; 85025; 85610; 85730; 86140; 87040; 87077; 87086; 87186; 87641; 88112; 93005; 94640; 99285; A9270-GY; C1876; J0696; J1100; J1170; J1580; J1644; J1885; J2250; J2405; J2704; J3010; J3490

== ENCOUNTER 2018-06-10 11:21 | Day surgery (SDC) | payer BC ==
[~2018-06-10 11:21] MED LIST changes: +Acetaminophen TAB* 325 MG PO PRN; +DiMENhydriNATE IV* 50 MG/ML VIAL IV PUSH PRN; -Famotidine IV* 10 MG/ML 2 ML (20 mg) IV ONE; +HYDROcodone/ACETAMIN 5-325 MG* 1 TAB PO PRN; +Iohexol 180 (CONTRAST) 10 ML SDV IV ONE; +Levalbuterol 0.63MG/3ML NEB* UNIT OF USE INH PRN; +Naloxone* 0.4 MG/ML 1 ML VIAL IV PRN; +Ondansetron INJ* 2 MG/ML VIAL IV PRN; +PROCHLORPERAZINE INJ 5 MG/ML 2 ML VIAL IV PRN; +fentaNYL* 50 MCG/ML 2 ML VIAL (100 MCG VIAL) IV PRN
[2018-06-10] MEDS ORDERED: cefTRIAXone(*) 2 GM ADDV.VIAL IVPB ONE (11:46)
[2018-06-10] MEDS ORDERED: Gentamicin ADULT (*) 120 MG in NS 0.9% 100 ML* 100 ML IVPB ONE (12:00)
[2018-06-10] MEDS ORDERED: fentaNYL* 50 MCG/ML 2 ML VIAL (100 MCG VIAL) ONE (12:20)
[2018-06-10] MEDS ORDERED: Midazolam* 1 MG/ML 2 ML VIAL (2 MG) ONE (12:20)
[2018-06-10] MEDS ORDERED: Lidocaine 2% PF * 5 ML VIAL ONE (12:59)
[2018-06-10] MEDS ORDERED: Dexamethasone IV* 4 MG/ML 1 ML (4 MG) ONE (13:00)
[2018-06-10] MEDS ORDERED: Propofol* 10 MG/ML 20 ML BTL IV PUSH ONE (13:00)
[2018-06-10] MEDS ORDERED: Famotidine IV* 10 MG/ML 2 ML (20 mg) ONE (13:00)
[2018-06-10] MEDS ORDERED: Tamsulosin CAP* 0.4 MG ONE (14:28)
[2018-06-10 14:34] VITALS: BP 123/82
--- NOTE | 2018-06-10 14:56 | RAD ---
INDICATION: Cystoscopy and LEFT side ureteroscopy and stone extraction. LEFT ureteral stent placement. Technique: 12 seconds of?fluoroscopy?was provided?for the physician proceduralist. REPORT: LEFT retrograde pyelogram is negative for significant caliectasis. LEFT ureteral stent placed. IMPRESSION: Procedural control films. CPT II Codes: G9500
--- NOTE | 2018-06-10 15:24 | RAD ---
Indication: Postop LEFT ureteral stent placement. Urolithiasis. Comparison: Spot images from the procedure of the same date and May 29, 2018 CT. Technique: Supine view of the abdomen. REPORT AND IMPRESSION: #. LEFT ureteral stent in place. Typical partial obscuration of the renal fossa due to bowel contents. No radiographic conspicuous urolithiasis. Pelvic phleboliths noted. Unremarkable soft tissue contours.
--- NOTE | 2018-06-11 00:05 | OP ---
CC: Dr. Sunny Velez * DATE OF OPERATION: 06/10/18 - [facility] DATE OF : 57 SURGEON: Shad Styles MD. ANESTHESIOLOGIST: Dr. Brown. ANESTHESIA: General. PRE-OP DIAGNOSES: 1. Left hydronephrosis. 2. Calculus, left ureter. POST-OP DIAGNOSES: 1. Left hydronephrosis. 2. Calculus, left ureter. OPERATIVE PROCEDURE: 1. Cystoscopy. 2. Left stent removal. 3. Left retrograde pyelogram. 4. Left ureteroscopy and stone extraction. 5. Left stent insertion. COMPLICATIONS: None. STENT USED: A 6-Romanian stent, left ureter. OPERATIVE FINDINGS: 1. Moderately large asymmetric prostate. 2. Approximately 5 mm calculus, left mid ureter. POSTOPERATIVE CONDITION: Stable. INDICATIONS: Tao Fairbanks is a 62-year-old gentleman, who had undergone urgent stent insertion because of an obstructing left ureteral calculus and sepsis. DESCRIPTION OF PROCEDURE: After induction of general anesthesia, the patient was placed in dorsal lithotomy position. Sequential compression devices were in place and functioning. Initial cystoscopy revealed a mild stricture at the meatus, a normal-appearing urethra, and asymmetric moderately large prostate. The previously placed stent was removed. A 6-Romanian semi-rigid ureteroscope was introduced and advanced under direct vision in the mid ureter and approximately 5 mm calculus was noted. This was engaged using a 3 pronged grasper and removed into the bladder. Retrograde pyelogram revealed fullness of the left collecting system and a new 6-Romanian stent was introduced and positioned under fluoroscopy with good proximal and distal positioning obtained. The bladder was emptied. The stone, which had been removed from the ureter into the bladder, could not be visualized in the bladder at the end of the procedure, and I suspect it had come out of the bladder and is somewhere in the drapes, which will be searched at the end of the procedure. The patient tolerated the procedure satisfactorily and was transferred back to recovery area in stable condition. [id number]/CPS #: [id number] MTDD
== END 2018-06-10 14:53 | disposition home or self-care (01) ==
LOC: OR 11:21
PROVIDERS: ATTEND Urology
DX: N13.2 Hydronephrosis with renal and ureteral calculous obstruction (principal); E11.9 Type 2 diabetes mellitus without complications; Z79.84 Long term (current) use of oral hypoglycemic drugs; I10 Essential (primary) hypertension; F41.8 Other specified anxiety disorders
CPT/HCPCS: 74018; 74420; C1876; J0696; J1100; J1580; J2250; J2704; J3010

== ENCOUNTER 2019-08-14 14:46 | Observation (INO) | payer BC ==
[2019-08-14] MEDS ORDERED: Metoprolol Tartrate IV* 1 MG/ML 5 ML VIAL IV ONE ×2 (15:05→17:30)
--- NOTE | 2019-08-14 15:14 | ED ---
Complex/Multi-Sys Presentation - HPI Summary HPI Summary: Pt is a 64 y/o M presenting to the ED brought in by EMS for a general illness. He states he believes it is a stomach bug, characterized by nausea, vomiting, headache, diaphoresis, shaking, chills, some SOB, some abd cramping, and photophobia. The headache came on gradually. He states he fell off the side of the bed this morning, and denies head injury. Pt denies any fever, erythema of eyes, blurred vision, sore throat, CP, cough, dysuria, hematuria, myalgia, edema , rash, or dizziness. - History Of Current Complaint Chief Complaint: EDHeadache Time Seen by Provider: 08/14/19 14:51 Hx Obtained From: Patient Onset/Duration: Gradual Onset, Lasting Days, Still Present Timing: Constant, Hours Severity Currently: Moderate Severity Initially: Moderate Associated Signs And Symptoms: Positive: Headache, SOB, Nausea, Vomiting, Abdominal Pain, Diaphoresis. Negative: Dizziness, Cough, Chest Pain, Dysuria - Allergies/Home Medications Allergies/Adverse Reactions: Allergies Allergy/AdvReac Type Severity Reaction Status Date / Time No Known Allergies Allergy Verified 06/10/18 11:57 Home Medications: Home Medications Amitriptyline TAB* [Elavil TAB*] 50 mg PO BEDTIME 08/14/19 [History Confirmed ] Dulaglutide (NF) [Trulicity (NF)] 1.5 mg SUBCUT WEEKLY 08/14/19 [History Confirmed 08/14/19] Insulin Degludec [Tresiba Flextouch] 52 unit SUBCUT DAILY 08/14/19 [History Confirmed 08/14/19] Lisinopril TAB* [Prinivil TAB*] 40 mg PO DAILY 08/14/19 [History Confirmed 08/14] Loperamide CAP* [Imodium CAP*] 2 mg PO Q4H PRN 08/14/19 [History Confirmed 08/14] Simvastatin TAB(NF) [Zocor(NF)] 20 mg PO BEDTIME 08/14/19 [History Confirmed ] PMH/Surg Hx/FS Hx/Imm Hx Previously Healthy: Yes Endocrine/Hematology History: Reports: Hx Diabetes - type 2 Denies: Hx Sickle Cell Disease Cardiovascular History: Reports: Hx Hypertension - UNDER CONTROL WITH MEDICATION pt. states Denies: Hx Pacemaker/ICD Respiratory History: Reports: Hx Asthma - hx, Hx Sleep Apnea, Other Respiratory Problems/Disorders - legionella pneumonia 02/2017 resolved GI History: Reports: Hx Irritable Bowel - diarrhea History: Reports: Hx Benign Prostatic Hyperplasia, Hx Kidney Infection - blockage of kidney, Hx Kidney Stones - LEFT, Other Problems/Disorders - TURP Denies: Hx Renal Disease Musculoskeletal History: Reports: Hx Arthritis - HIPS AND KNEES Sensory History: Reports: Hx Cataracts - bilat Denies: Hx Contacts or Glasses, Hx Hearing Aid Opthamlomology History: Reports: Hx Cataracts - bilat Denies: Hx Contacts or Glasses Neurological History: Reports: Other Neuro Impairments/Disorders - hands and feet neuropathy r/t diabetes Psychiatric History: Reports: Hx Depression - ON MEDICATION, WORKING WELL FOR PATIENT Denies: Hx Panic Disorder - Cancer History Hx Chemotherapy: No - Surgical History Surgery Procedure, Year, and Place: cataract removal right eye with lens [place] [facility] [place] RIGHT KNEE SCOPING REPAIR 03/2017. LEFT STENT INSERTION CYSTOSCOPY 05/31/18 [facility] [place]x Anesthesia Reactions: No Infectious Disease History: No Infectious Disease History: Denies: Traveled Outside the [place] in Last 30 Days - Family History Known Family History: Positive: Cardiac Disease - Social History Alcohol Use: Occasionally Alcohol Amount: 3-4 WEEKLY Hx Substance Use: No Substance Use Type: Reports: None Hx Tobacco Use: Yes Smoking Status (MU): Former Smoker Amount Used/How Often: 16YR HX 1 1/2PPD Review of Systems Positive: Chills, Skin Diaphoresis, Other - shaking. Negative: Fever Positive: Photophobia. Negative: Blurred Vision, Erythema Negative: Sore Throat Negative: Chest Pain Positive: Shortness Of Breath. Negative: Cough Positive: Abdominal Pain, Vomiting, Nausea Negative: dysuria, hematuria Negative: Myalgia, Edema Negative: Rash Neurological: Negative - dizziness Positive: Headache All Other Systems Reviewed And Are Negative: Yes Physical Exam - Summary Physical Exam Summary: Constitutional: Well-developed, Well-nourished, Alert. (-) Distressed Skin: Warm, Dry HENT: Normocephalic; Atraumatic Eyes: Conjunctiva normal Neck: Musculoskeletal ROM normal neck. (-) JVD, (-) Stridor, (-) Tracheal deviation Cardio: Rhythm regular, rate normal, Heart sounds normal; Intact distal pulses; The pedal pulses are 2+ and symmetric. Radial pulses are 2+ and symmetric. (-) Murmur Pulmonary/Chest wall: Effort normal. (-) Respiratory distress, (-) Wheezes, (-) Rales Abd: Soft. (-) Tenderness, (-) Distension, (-) Guarding, (-) Rebound Musculoskeletal: (-) Edema Lymph: (-) Cervical adenopathy Neuro: Alert, Oriented x3, Strength normal, Cranial nerves II-XII are grossly intact. (-) Dysmetria, (-) Nystagmus, (-) Ataxia by finger to nose testing, (-) Sensory deficit. Psych: Mood and affect Normal Triage Information Reviewed: Yes Vital Signs On Initial Exam: Initial Vitals Temp Pulse Resp BP Pulse Ox 97.9 F 97 20 179/106 98 08/14/19 14:56 08/14/19 14:56 08/14/19 14:56 08/14/19 14:56 08/14/19 14:56 Vital Signs Reviewed: Yes - Trice Coma Scale Best Eye Response: 4 - Spontaneous Best Motor Response: 6 - Obeys Commands Best Verbal Response: 5 - Oriented Coma Scale Total: 15 Diagnostics - Vital Signs Vital Signs Temp Pulse Resp BP Pulse Ox 08/14/19 14:56 97.9 F 97 20 179/106 98 - Laboratory Result Diagrams: 08/14/19 15:32 08/14/19 15:32 Lab Statement: Any lab studies that have been ordered have been reviewed, and results considered in the medical decision making process. - Radiology CXR Radiology Interpretation Completed By: Radiologist Summary of Radiographic Findings: No active cardiopulmonary disease is noted. ED physician has reviewed this report. - CT Brain CT CT Interpretation Completed By: Radiologist Summary of CT Findings: Unremarkable head CT for age. Stable exam compared with July 25, 2015. ED physician has reviewed this report. - EKG 1504 Cardiac Rate: NL - 84bpm EKG Rhythm: Sinus Rhythm ST Segment: Normal Ectopy: None Summary of EKG Findings: EKG at 1504 shows NSR at 84bpm with RBBB and no STEMI. 1540 Cardiac Rate: NL - 85bpm EKG Rhythm: Sinus Rhythm ST Segment: Normal Ectopy: None Summary of EKG Findings: EKG at 1540 shows NSR at 85bpm with RBBB and no STEMI. Re-Evaluation - Re-Evaluation 1st re-eval Re-Evaluation Time: 17:30 Comment: Pt slightly improved. Reports headache. Complex Multi-Symp Course/Dx Course Of Treatment: Pt is a 64 y/o M presenting to the ED brought in by EMS for a general illness. He states he believes it is a stomach bug, characterized by nausea, vomiting, headache, diaphoresis, shaking, chills, some SOB, some abd cramping, and photophobia. The headache came on gradually. He states he fell off the side of the bed this morning, and denies head injury. Pt denies any fever, erythema of eyes, blurred vision, sore throat, CP, cough, dysuria, hematuria, myalgia, edema, rash, or dizziness. He thinks he has had migraines in the past but cannot remember specifically when. Pt's physical exam is nml. EKG at 1504 shows NSR at 84bpm with RBBB and no STEMI. CXR shows: No active cardiopulmonary disease is noted. EKG at 1540 shows NSR at 85bpm with RBBB and no STEMI. Brain CT shows: Unremarkable head CT for age. Stable exam compared with July 25, 2015. As of 1729, the pt is slightly improved. He notes headache. - Diagnoses Provider Diagnoses: Hypertensive emergency, Metformin adverse reaction, Lactic acidosis - Physician Notifications Discussed Care Of Patient With: Allegra Givens Time Discussed With Above Provider: 17:40 Instructed by Provider To: Admit As Inpatient - Critical Care Time Critical Care Time: 30-74 min - 60min Discharge ED - Sign-Out/Discharge Documenting (check all that apply): Patient Departure - Discharge Plan Condition: Stable Disposition: ADMITTED TO [facility] Referrals: Sunny Velez MD [Medical Doctor] - - Attestation Statements Document Initiated by Scribe: Yes Documenting Scribe: Nancy Loya Provider For Whom Baylee is Documenting (Include Credential): Elliot Pelayo MD. Scribe Attestation: Nancy Bains, scribed for Elliot Pelayo MD. on 08/14/19 at 1742. Status of Scribe Document: Ready Consult Consult: 1740 - I spoke with Dr. Givens who will be coming to evaluate the pt for admission.
[2019-08-14 15:39] LABS: ABS Lymphocytes 0.7 10^3/ul (1.0-4.8); ABS Monocytes 0.5 10^3/ul (0-0.8); ABS Neutrophils 8.5 10^3/ul (1.5-7.7); Eosinophil % 0.5 %; Hematocrit 49 % (42-52); Lymphocyte % 7.4 %; Mean Corpuscular HGB Conc 35 g/dL (31-36); Mean Corpuscular Hemoglobin 30 pg (27-31); Mean Corpuscular Volume 86 fL (80-94); Mean Platelet Volume 9.2 fL (7.4-10.4); Platelet Count 194 10^3/uL (150-450); Red Blood Count 5.72 10^6 /uL (4.18-5.48); Red Cell Distribution Width 15 % (10-15); White Blood Count 9.7 10^3/uL (3.5-10.8)
[2019-08-14 16:21] LABS: T4, Total 6.62 mcg/dL (6.09-12.23)
[2019-08-14 16:24] LABS: TSH (Thyroid Stimulating Horm) 3.89 mcIU/mL (0.34-5.60)
[2019-08-14] MEDS ORDERED: Ondansetron INJ* 2 MG/ML VIAL IV ONE (16:32)
[2019-08-14] MEDS ORDERED: Ondansetron INJ* 2 MG/ML VIAL ONE (16:32)
[2019-08-14 16:39] LABS: Albumin 4.3 g/dL (3.2-5.2); Albumin/Globulin Ratio 1.7 (1-3); BUN/Creatinine Ratio 15.4 (8-20); Calcium 10.2 mg/dL (8.6-10.3); EGFR African American 87.3 (>60); EGFR Non-African American 72.1 (>60); Globulin 2.5 g/dL (2-4); Potassium 4.2 mmol/L (3.5-5.0); Total Bilirubin 0.7 mg/dL (0.2-1.0); Total Protein 6.8 g/dL (6.4-8.9)
[2019-08-14] MEDS ORDERED: Ketorolac INJ* 30 MG/ML 1 ML VIAL IV PUSH ONE (17:30)
[2019-08-14] MEDS ORDERED: NS 0.9% 1000 ML** 2,000 ML IV ONE (17:33)
[2019-08-14 19:15] LABS: Urine Appearance Clear; Urine Bacteria Absent (Absent); Urine Bilirubin Negative (Negative); Urine Blood Negative (Negative); Urine Color Yellow; Urine Glucose 3+(>=500 mg/dL) (Negative); Urine Ketones 1+ (Negative); Urine Nitrite Negative (Negative); Urine Protein 2+(100 mg/dL) (Negative); Urine Red Blood Cell 1+(3-5/hpf) (Absent); Urine Specific Gravity 1.031 (1.010-1.030); Urine Squamous Epithelial Cell Present (Absent); Urine Urobilinogen Negative (Negative); Urine White Blood Cell Trace(0-5/hpf) (Absent)
[2019-08-14] MEDS ORDERED: Acetaminophen TAB* 325 MG PO PRN (19:30)
[2019-08-14] MEDS ORDERED: NS 0.9% 1000 ML** 1,000 ML IV SCH (19:30)
[2019-08-14] MEDS ORDERED: Dextrose 50% VIAL 50 ml IV PUSH PRN (19:35)
[2019-08-14] MEDS ORDERED: NS 0.9% 1000 ML** 1,000 ML IV ONE (20:17)
[2019-08-14] MEDS ORDERED: PARoxetine HCL TAB* 40 MG PO SCH (21:00)
[2019-08-14] MEDS ORDERED: Enoxaparin(*) 40 MG/0.4 ML SYR SUBCUT SCH (21:00)
[2019-08-14] MEDS ORDERED: Atorvastatin* 10 MG TAB PO SCH (21:00)
--- NOTE | 2019-08-14 21:36 | HP ---
CC: Dr. Alicia * HISTORY AND PHYSICAL: DATE OF ADMISSION: 08/14/19 PROVIDER: July Singh NP. PRIMARY CARE PROVIDER: Dr. Alicia. ATTENDING PHYSICIAN WHILE IN THE HOSPITAL: Dr. Raissa Borjas * (dictated by July Singh NP). CHIEF COMPLAINT: Headache, dizziness, hypertension. HISTORY OF PRESENT ILLNESS: Mr. 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 People came to check on him. They called EMS and the patient was brought to the emergency room for further evaluation. The patient does report that he has these episodes of severe headaches on and off. He does report that generally he can lay down for approximately 45 minutes and the symptoms will resolve. He does report that the symptoms he experienced today were worse than normal. He reports that he usually takes ibuprofen for his headaches. He does report that if he has a severe headache, he would take a Percocet, but he does report that that is on a rare basis. While in the emergency room, the patient had routine lab work drawn. He had vital signs taken. He was found to be hypertensive with a blood pressure of 179 /106. He had a CT of the brain that showed no acute intracranial pathology. He was given Lopressor 5 mg with improvement of his blood pressure to 154/97. He had a chest x- ray that showed no acute disease. Due to his symptoms and hypertension, Hospital Medicine was asked to see and evaluate the patient for admission. PAST MEDICAL HISTORY: Significant for: 1. Diabetes type II. 2. Hypertension. 3. Urolithiasis. 4. Anxiety. 5. Depression. 6. BPH, status post TURP. 5. IBS. 6. History of Legionnaires' disease. 7. Glaucoma. PAST SURGICAL HISTORY: 1. Right knee surgery. 2. TURP. HOME MEDICATIONS: Include: 1. Imodium 2 mg p.o. q.4 hours as needed. 2. Ibuprofen 800 mg p.o. q.8 hours p.r.n. 3. Glipizide 10 mg p.o. b.i.d. 4. Tresiba 52 units subcu daily. 5. Metformin 2000 units p.o. daily. 6. Lisinopril 40 mg p.o. daily. 7. Hydrochlorothiazide 12.5 mg p.o. daily. 8. Trulicity 1.5 mg subcu weekly. 9. Simvastatin 20 mg p.o. at bedtime. 10. Oxycodone 1 tab p.o. q.6 hours. 11. Amitriptyline 50 mg at bedtime. 12. Paxil 40 mg p.o. at bedtime. ALLERGIES: No known drug allergies. FAMILY HISTORY: Father with a history of [place] and a pacemaker at the age of 95. No reported history of diabetes. Father with skin cancer, grandmother with history of breast cancer. SOCIAL HISTORY: The patient reports he quit smoking in 1980. Prior to that, he smoked 2 packs a day for 15 to 20 years. He does report occasional rare cigar use. He does report he drinks 3 to 4 shots 3 to 4 days a week. No illicit drug use. He is . He has a significant other. Surrogate decision maker in the event he is unable to make his own decisions is his significant other, Mir. He is a full code. REVIEW OF SYSTEMS: The patient denies any fevers or unintended weight loss. He denies any chest pain or edema. Denies any cough, hemoptysis, or shortness of breath. He does report some nausea and vomiting. Denies any diarrhea or abdominal pain. Denies any gross hematuria, dysuria, focal weakness, or sensory loss. Denies any visual complaints or dysphagia. He does complain of chronic muscle aches. Denies any rashes, lesions, open sores, psychosis, or anxiety. He does report severe headache with associated nausea, cold sweat, dizziness, and weakness. PHYSICAL EXAMINATION GENERAL: At this time, Mr. Fairbanks is a 64-year-old male. He is alert and oriented, resting on the stretcher in the emergency room. He is in no acute distress. VITAL SIGNS: Blood pressure is currently 154/97, heart rate is 91, respirations are 25, O2 saturations are 98% on room air, temperature was 97.9. HEENT: Head is atraumatic, normocephalic. Eyes: EOMs are intact. Sclerae anicteric and not pale. Oral mucosa appeared to be moist. NECK: Supple. LUNGS: Clear to auscultation bilaterally. No wheezes, rales or rhonchi. CARDIAC: S1, S2. Regular rate and rhythm. No murmurs, rubs, or gallops. ABDOMEN: Soft, and nontender. Bowel sounds are present x4. EXTREMITIES: He is able to move all 4 extremities. There is no clubbing or cyanosis. Pedal pulses are +2 bilaterally. NEUROLOGIC: He is awake, alert, oriented x3. Speech is clear. Thought process is intact. There are no gross focal deficits. Hand cotton classer aide are equal. There is no pronator drift. Smile is equal. There is no facial asymmetry. Tongue is midline. Heel to valente is intact. There is no leg drift. Push to pull is intact. Sensation is intact to all 4 extremities. DIAGNOSTIC STUDIES/LAB DATA: WBCs are 9.7, RBCs 5.72, hemoglobin 17.0, hematocrit was 49, platelet count was 194. Sodium 136, potassium 4.2, chloride 100, carbon dioxide was 26, anion gap was 10, BUN was 16, creatinine 1.04, glucose was 297, lactic acid was 3.6, calcium 10.2. ASTs were 22, ALTs were 40 , alkaline phosphatase was 62. Troponin was 0.00 x2. TSH was 3.89 and T4 was 6.62. Urine is pending. He had a chest x-ray. Radiologist impression: No active cardiopulmonary disease. He had a CT of the brain, unremarkable head CT for age. Stable when compared to with 07/25/15. He had an electrocardiogram, which showed sinus rhythm, rate of 85, right bundle-branch block consistent with prior EKG. ASSESSMENT AND PLAN: Mr. Fairbanks is a 64-year-old male with a past medical history significant for type 2 diabetes, hypertension, urolithiasis, anxiety, depression, irritable bowel, glaucoma, who presented to the emergency room with complaints of progressively worsening headache associated with nausea, diaphoresis, and dizziness and weakness, who was found to be hypertensive with severe headache in the emergency room. He will be admitted under observation for: 1. Headache. The patient does have a history of headaches in the past. He does report that his headache was improved since receiving Toradol and Zofran. He did receive 2 L of IV fluids in the emergency room. I will continue him on IV fluids overnight at 75 cc per hour and reevaluate his status in the morning. He can have Tylenol as needed for headache. 2. Hypertension. The patient did have hypertension. While in the emergency room, his initial blood pressure on arrival was 179/106. He was given Lopressor 5 mg x2, which improved his blood pressure 154/97. The patient did not take his routine blood pressure medication. I will give him a dose of lisinopril this evening and monitor him overnight. He will be monitored on telemetry. 3. Diabetes type II. I will hold his metformin, Trulicity, Tresiba, and glipizide. I will start him on fingersticks a.c. with lispro sliding scale a.c. 4. Lactic acidosis. The patient does have an elevated lactic acid level. I will repeat a lactic acid level. I suspect this could be associated to his use of metformin as the patient does not appear to have any acute source of infection at this time. He is afebrile. His chest x-ray is normal. He has no urinary symptoms and no fever. 5. Anxiety and depression. He should continue on Paxil as previously prescribed. 6. FEN: He can have a consistent carb diet. 7. Code status: He is a full code. 8. DVT prophylaxis: I will place him on Lovenox subcu. TIME SPENT: Time spent on this admission was 60 minutes; greater than half that time was spent at the bedside reviewing events leading thus far to his hospitalization and performing my physical exam. I have discussed this with my attending, Dr. Raissa Borjas; she is in agreement with my plan. JULY SINGH, KATHRINE [id number]/[facility] #: [id number] [place]
[2019-08-14] MEDS: Lisinopril TAB* 10 MG PO SCH (22:01)
[2019-08-15 06:47] LABS: ABS Basophils 0.1 10^3/ul (0-0.2); ABS Eosinophils 0.1 10^3/ul (0-0.6); ABS Lymphocytes 1.4 10^3/ul (1.0-4.8); ABS Monocytes 0.5 10^3/ul (0-0.8); Eosinophil % 1.9 %; Hematocrit 48 % (42-52); Hemoglobin 16.3 g/dL (14.0-18.0); Lymphocyte % 20.1 %; Mean Corpuscular HGB Conc 34 g/dL (31-36); Mean Corpuscular Hemoglobin 30 pg (27-31); Mean Corpuscular Volume 86 fL (80-94); Mean Platelet Volume 9.2 fL (7.4-10.4); Platelet Count 193 10^3/uL (150-450); Red Blood Count 5.51 10^6 /uL (4.18-5.48); Red Cell Distribution Width 15 % (10-15); White Blood Count 7.2 10^3/uL (3.5-10.8)
[2019-08-15 07:18] LABS: BUN/Creatinine Ratio 22.3 (8-20); EGFR African American 98.1 (>60); EGFR Non-African American 81.1 (>60); HDL Cholesterol 32.9 mg/dL; Potassium 4.1 mmol/L (3.5-5.0)
[2019-08-15] MEDS: Insulin LISPRO* 1 UNITS UNIT SUBCUT SCH ×2 (08:31→12:46)
[2019-08-15] MEDS: Lisinopril TAB* 10 MG PO SCH (08:31)
[2019-08-15 12:26] VITALS: BP 151/88
--- NOTE | 2019-08-17 20:40 | DS ---
DISCHARGE SUMMARY: DATE OF ADMISSION: 08/14/19 DATE OF DISCHARGE: 08/15/19 PROVIDER: July Singh NP PRIMARY CARE PROVIDER: Dr. Alicia. ATTENDING PHYSICIAN WHILE IN THE HOSPITAL: Dr. Allegra Givens * (dictated by July Singh NP). PRIMARY DIAGNOSES: 1. Hypertensive emergency. 2. Headache. 3. Lactic acidosis, resolved. SECONDARY DIAGNOSES: 1. Type 2 diabetes. 2. Hypertension. 3. Anxiety. 4. Depression. 5. Irritable bowel syndrome. STUDIES COMPLETED WHILE IN THE HOSPITAL: He had a CT of the brain, radiologist' s impression: Unremarkable CT of the brain. He had a chest x-ray, radiologist's impression: No active cardiopulmonary disease. He had an electrocardiogram, which showed sinus rhythm at a rate of 85 with right bundle branch block consistent with previous EKGs. DISCHARGE MEDICATIONS: No new home medications. Continued medications: 1. Imodium 2 mg p.o. q.4 hours as needed. 2. Ibuprofen 800 mg p.o. q.8 hours as needed. 3. Glipizide 10 mg p.o. b.i.d. 4. Tresiba 52 units subcu daily. 5. Metformin 2000 mg p.o. daily. 6. Lisinopril 40 mg p.o. daily. 7. Hydrochlorothiazide 12.5 mg p.o. q.a.m. 8. Trulicity 1.5 mg subcu weekly. 9. Simvastatin 20 mg at bedtime. 10. Oxycodone/acetaminophen 5/325 one tablet every 6 hours as needed for pain. 11. Amitriptyline 50 mg p.o. at bedtime. 12. Paroxetine 40 mg p.o. at bedtime. HISTORY OF PRESENT ILLNESS AND HOSPITAL COURSE: Mr. 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 The patient reports that he has history of severe headaches in the past associated with similar symptoms. Generally, in the past, he takes ibuprofen and lays down for 45 minutes and the symptoms resolve. The patient was at work and unable to do this and due to his symptoms of breaking out in a cold sweat, dizziness and weakness, he was brought to the emergency room by EMS for further evaluation. While in the emergency room, the patient had a CT of the brain, which was unremarkable. He had an EKG that did not show any acute ST changes. He was found to be hypertensive with a blood pressure of 179/106. The patient does report that he did not take his blood pressure medications prior to his arrival to the emergency room. He did receive Lopressor 5 mg in the emergency room with improvement of his blood pressure to 154/97. Due to the patient's weakness , headache and hypertension, Hospital Medicine saw and evaluated the patient for admission. While in the hospital, the patient did receive IV fluids overnight. He was restarted on his blood pressure medications. His blood pressure returned to baseline of 127/69, heart rate was 86. The patient on the day of discharge reports that he is feeling much better and back to his baseline. He does report that his headache has resolved as well as his nausea, dizziness, and weakness. At this time, he is stable for discharge home. REVIEW OF SYSTEMS: The patient denies any fever, chills, unintended weight loss. He denies any chest pain, shortness of breath. He denies any cough or congestion. He denies any nausea, vomiting, diarrhea, abdominal pain, gross hematuria, dysuria. Denies any focal weakness or sensory loss. Denies any rashes, lesions, open sores. PHYSICAL EXAMINATION: General: At this time, Mr. Fairbanks is a 64-year-old male. He is alert and oriented, resting in his hospital bed. He is in no acute distress. He is well developed, well nourished. HEENT: Head is atraumatic, normocephalic. Eyes: EOMs are intact. Sclerae anicteric and not pale. Oral mucosa appeared to be moist. Neck is supple. Lungs are clear to auscultation bilaterally. No wheezes, rales, or rhonchi. Cardiac: S1, S2. Regular rate and rhythm. No murmurs, rubs, or gallops. Abdomen is soft and nontender. Bowel sounds are present x4. He is able to move all 4 extremities with 5/5 strength. There is no clubbing or cyanosis. Skin is intact. At this time, Mr. Fairbanks is stable for discharge home. Vital signs are as follows: Blood pressure 127/69, heart rate 86, respirations 20, O2 saturation 97 %, temperature was 98.1. DISCHARGE PLAN: Mr. Fairbanks will be discharged back home. Activity as tolerated. 1. Hypertensive emergency. The patient did receive Lopressor IV in the emergency room. He was resumed on his previous home blood pressure medication of lisinopril, which normalized his blood pressure back to baseline. I have recommended the patient take his medications on a daily basis. He can follow up with his primary care provider in 4 to 7 days for a followup. The patient did report associated cold sweats, dizziness. I suspect this could have been exacerbated by the severe headache that the patient was experiencing. The patient was instructed to return to the emergency room if he developed any chest pain, weakness on one side, severe dizziness, or any other concerning symptoms. 2. Diabetes Type II . The patient should resume his previous diabetic medications as previously prescribed. 3. The patient did have lactic acidosis. I suspect this could be related to the vomiting that the patient experiencing and use of metformin, possible mild dehydration. He did receive IV fluids and his lactic acid level did normalize back to baseline. 4. Depression and anxiety. The patient should continue on Paxil as previously prescribed. 5. FEN: He should have a consistent carbohydrate diet. FOLLOWUP: The patient should follow up with his primary care provider in 4 to 7 days. He should return to the emergency room for any chest pain, shortness of breath, weakness on one side, severe uncontrollable headache, or any other concerns. TIME SPENT: Time spent on this discharge was 45 minutes, greater than half that time was spent at the bedside reviewing discharge instructions and plans. The patient verbalized understanding. CONDITION ON DISCHARGE: Stable. DISPOSITION ON DISCHARGE: Home. I have discussed this with my attending, Dr. Allegra Givens; she is in agreement with my plan. JULY SINGH, KATHIRNE [id number]/[facility] #: [id number] [place]
== END 2019-08-15 13:08 | disposition home or self-care (01) ==
LOC: ED 14:46 → MEDTELE 19:30
PROVIDERS: ADMIT Hospitalist; ATTEND Internal Medicine
DX: R51 Headache (principal); R42 Dizziness and giddiness; I10 Essential (primary) hypertension; E11.9 Type 2 diabetes mellitus without complications; N20.9 Urinary calculus, unspecified; F41.9 Anxiety disorder, unspecified; F32.9 Major depressive disorder, single episode, unspecified; N40.0 Benign prostatic hyperplasia without lower urinary tract symptoms; K58.9 Irritable bowel syndrome, unspecified; H40.9 Unspecified glaucoma; Z79.899 Other long term (current) drug therapy; F17.210 Nicotine dependence, cigarettes, uncomplicated; R11.2 Nausea with vomiting, unspecified; I45.10 Unspecified right bundle-branch block; R94.31 Abnormal electrocardiogram [ECG] [EKG]; E87.2 Acidosis
CPT/HCPCS: 36415; 70450; 71045; 80048; 80053; 80061; 81003; 81015; 83605; 84436; 84443; 84484; 85025; 87086; 93005; 96361; 96372; 96374; 96375; 96376; 99284; A9270-GY; G0378; J1650; J1885; J2405; J3490

== ENCOUNTER 2021-06-23 09:21 | Inpatient (IN) ==
[2021-06-23 10:07] LABS: ABS Basophils 0.1 10^3/ul (0-0.2); ABS Eosinophils 0.1 10^3/ul (0-0.6); ABS Lymphocytes 1.2 10^3/ul (1.0-4.8); ABS Monocytes 0.4 10^3/ul (0-0.8); ABS Neutrophils 5.3 10^3/ul (1.5-7.7); Eosinophil % 1.6 %; Hematocrit 50 % (42-52); Hemoglobin 17.1 g/dL (14.0-18.0); Lymphocyte % 17.1 %; Mean Corpuscular HGB Conc 35 g/dL (31-36); Mean Corpuscular Hemoglobin 30 pg (27-31); Mean Corpuscular Volume 86 fL (80-94); Mean Platelet Volume 8.9 fL (7.4-10.4); Nucleated Red Blood Cells % 0.1; Platelet Count 226 10^3/uL (150-450); Red Blood Count 5.77 10^6 /uL (4.18-5.48); Red Cell Distribution Width 14 % (10-15); White Blood Count 7.2 10^3/uL (3.5-10.8)
[2021-06-23 10:22] LABS: ALT 16 U/L (7-52); AST 12 U/L (13-39); Albumin 4.2 g/dL (3.2-5.2); Albumin/Globulin Ratio 1.7 (1-3); Alkaline Phosphatase 73 U/L (35-149); Anion Gap 5 mmol/L (2-11); Blood Urea Nitrogen 18 mg/dL (6-24); CO2 Carbon Dioxide 32 mmol/L (22-32); Calcium 9.9 mg/dL (8.6-10.3); Chloride 99 mmol/L (101-111); EGFR African American 100.2 (>60); EGFR Non-African American 82.8 (>60); Globulin 2.5 g/dL (2-4); Glucose 238 mg/dL (70-100); Potassium 4.4 mmol/L (3.5-5.0); Sodium 136 mmol/L (135-145); Total Protein 6.7 g/dL (6.4-8.9)
[2021-06-23] MEDS ORDERED: Gadoteridol (CONTRAST) 279.3 MG/ML 10 ML IV ONE (12:31)
[2021-06-23 14:00] LABS: C Reactive Protein 3.49 mg/L (<8.01)
[2021-06-23] MEDS ORDERED: Ondansetron 4 mg VIAL 2 MG/ML 2 ml VIAL IV ONE (14:22)
[2021-06-23] MEDS ORDERED: Lidocaine 1% MPF 5 ML VIAL INJ ONE (14:30)
[2021-06-23] MEDS ORDERED: Iodixanol (CONTRAST) 320 MG/ML 100 ML SDV IV ONE (14:56)
[2021-06-23 14:58] LABS: Body Fluid Source Cerebral Spinal
[2021-06-23 15:13] LABS: CSF Glucose 123 mg/dL (40-70)
[2021-06-23 15:25] LABS: Body Fluid Appearance Clear; Body Fluid Color Colorless; CSF Tube # 4
[2021-06-23 15:38] LABS: Activated Partial Thrombo Time 34.4 seconds (26.0-38.0); INR 1.02 (0.86-1.15)
[2021-06-23 16:05] LABS: Body Fluid WBC 4 /mcL
[2021-06-23 16:49] LABS: Rheumatoid Factor < 10 IU/mL (<15)
[2021-06-23 17:03] LABS: Body Fluid Mono 42 %; Body Fluid Total Cells Counted 50
[2021-06-23] MEDS ORDERED: Dextrose 50% Syringe 50 ml 25 GM/50 ML SYRINGE IV PUSH PRN (18:12)
[2021-06-23] MEDS ORDERED: cefTRIAXone 2 GM ADDV.VIAL 2 GM in NS 0.9% 100 ml BAG 100 ML IV ONE (18:30)
[2021-06-23] MEDS: [UNRECOGNIZED DRUG - MIXTURE] IV SCH (20:20)
[2021-06-23] MEDS: oxyCODONE/Acetamin 5/325 mg TAB PO PRN (20:45)
[2021-06-23] MEDS: Enoxaparin 40 MG/0.4 ML SYR SUBCUT SCH (20:54)
[2021-06-23] MEDS: Ondansetron 4 mg VIAL 2 MG/ML 2 ml VIAL IV PRN (21:32)
[2021-06-24] MEDS ORDERED: Lactated Ringers 500 ml BAG 500 ML IV ONE (00:50)
[2021-06-24 05:49] LABS: ABS Lymphocytes 0.9 10^3/ul (1.0-4.8); ABS Monocytes 0.6 10^3/ul (0-0.8); ABS Neutrophils 8.2 10^3/ul (1.5-7.7); Eosinophil % 0.1 %; Hematocrit 52 % (42-52); Hemoglobin 17.3 g/dL (14.0-18.0); Lymphocyte % 9.3 %; Mean Corpuscular HGB Conc 34 g/dL (31-36); Mean Corpuscular Hemoglobin 29 pg (27-31); Mean Corpuscular Volume 87 fL (80-94); Mean Platelet Volume 9.1 fL (7.4-10.4); Nucleated Red Blood Cells % 0.2; Platelet Count 222 10^3/uL (150-450); Red Blood Count 5.93 10^6 /uL (4.18-5.48); Red Cell Distribution Width 15 % (10-15); White Blood Count 9.8 10^3/uL (3.5-10.8)
[2021-06-24 06:05] LABS: Calcium 9.9 mg/dL (8.6-10.3); EGFR African American 96.6 (>60); EGFR Non-African American 79.8 (>60); HDL Cholesterol 44.7 mg/dL; Magnesium 1.5 mg/dL (1.9-2.7); Potassium 3.9 mmol/L (3.5-5.0)
[2021-06-24] MEDS ORDERED: Magnesium Sulfate IV 3 GM in NS 0.9% 100 ml BAG 100 ML IVPB ONE (06:17)
[2021-06-24 06:22] LABS: TSH Ultra Thyroid Stim Horm 2.17 mcIU/mL (0.34-5.60)
[2021-06-24] MEDS ORDERED: cefTRIAXone 2 GM ADDV.VIAL 2 GM in NS 0.9% 100 ml BAG 100 ML IV SCH (09:00)
[2021-06-24] MEDS ORDERED: NS 0.9% 1000 ml BAG 1,000 ML IV ONE ×2 (09:25→09:27)
[2021-06-24] MEDS: Insulin GLARGINE 100 un/ml 10 ml VIAL SUBCUT SCH (09:53)
[2021-06-24] MEDS: DULoxetine DR 60 mg CAP PO SCH (09:54)
[2021-06-24] MEDS: [UNRECOGNIZED DRUG - MIXTURE] IV SCH (20:38)
[2021-06-24] MEDS: cefTRIAXone 2 GM ADDV.VIAL 2 GM in NS 0.9% 100 ml BAG 100 ML IV SCH (21:14)
[2021-06-24] MEDS: oxyCODONE/Acetamin 5/325 mg TAB PO PRN (21:34)
[2021-06-24] MEDS: Enoxaparin 40 MG/0.4 ML SYR SUBCUT SCH (21:35)
[2021-06-24] MEDS: PTO: Latanoprost 0.005% 2.5 ml BTL BOTH EYES SCH (21:45)
[2021-06-24] MEDS: PTO: Brimonidine 0.2% 5 ML BTL BOTH EYES SCH (21:57)
[2021-06-24] MEDS: PTO: Dorzolamide/Timolol OPTH (NF) 10 ML BOT BOTH EYES SCH (22:09)
[2021-06-25] MEDS: oxyCODONE/Acetamin 5/325 mg TAB PO PRN ×3 (03:38→21:28)
[2021-06-25 06:37] LABS: ABS Basophils 0.1 10^3/ul (0-0.2); ABS Eosinophils 0.1 10^3/ul (0-0.6); ABS Lymphocytes 1.2 10^3/ul (1.0-4.8); ABS Monocytes 0.4 10^3/ul (0-0.8); ABS Neutrophils 2.2 10^3/ul (1.5-7.7); Eosinophil % 3.1 %; Hematocrit 46 % (42-52); Hemoglobin 15.8 g/dL (14.0-18.0); Lymphocyte % 29.7 %; Mean Corpuscular HGB Conc 34 g/dL (31-36); Mean Corpuscular Hemoglobin 30 pg (27-31); Mean Corpuscular Volume 87 fL (80-94); Mean Platelet Volume 9.4 fL (7.4-10.4); Platelet Count 183 10^3/uL (150-450); Red Blood Count 5.32 10^6 /uL (4.18-5.48); Red Cell Distribution Width 14 % (10-15); White Blood Count 3.9 10^3/uL (3.5-10.8)
[2021-06-25 07:19] LABS: EGFR African American 97.8 (>60); EGFR Non-African American 80.8 (>60); Magnesium 1.8 mg/dL (1.9-2.7); Phosphorus 3.1 mg/dL (2.5-5.0); Potassium 3.7 mmol/L (3.5-5.0)
[2021-06-25] MEDS ORDERED: Potassium Chlor 20 meq TAB.ER PO ONE (08:12)
[2021-06-25] MEDS ORDERED: Acetaminophen IV 1 GM/100ML 100 ML IV ONE (08:30)
[2021-06-25] MEDS ORDERED: Dextran 70/Hypromellose Tears Eye Drops 15 ml BTL (for Artificials Tears) RIGHT EYE PRN (09:47)
[2021-06-25] MEDS: PTO: Dorzolamide/Timolol OPTH (NF) 10 ML BOT BOTH EYES SCH ×2 (10:03→21:36)
[2021-06-25] MEDS: DULoxetine DR 60 mg CAP PO SCH (10:06)
[2021-06-25] MEDS: PTO: Brimonidine 0.2% 5 ML BTL BOTH EYES SCH ×2 (10:11→21:31)
[2021-06-25] MEDS: Insulin GLARGINE 100 un/ml 10 ml VIAL SUBCUT SCH (10:12)
[2021-06-25 14:24] LABS: Complement C3 125 mg/dL (75 - 175)
[2021-06-25] MEDS: Ondansetron 4 mg VIAL 2 MG/ML 2 ml VIAL IV PRN ×2 (14:24→23:41)
[2021-06-25] MEDS: [UNRECOGNIZED DRUG - MIXTURE] IV SCH (20:25)
[2021-06-25] MEDS: cefTRIAXone 2 GM ADDV.VIAL 2 GM in NS 0.9% 100 ml BAG 100 ML IV SCH (20:54)
[2021-06-25 21:01] LABS: SS-A/Ro Antibody <0.2 U; SS-B/La Antibody <0.2 U
[2021-06-25] MEDS: PTO: Latanoprost 0.005% 2.5 ml BTL BOTH EYES SCH (21:22)
[2021-06-25] MEDS: Enoxaparin 40 MG/0.4 ML SYR SUBCUT SCH (21:24)
[2021-06-25 23:06] LABS: Anaplasma phagocytophilum Negative (Negative); B. miyamotoi PCR, B Negative (Negative); Babesia divergens/MO-1 Negative (Negative); Babesia ducani Negative (Negative); Ehrlichia chaffeensis Negative (Negative); Ehrlichia ewingii/canis Negative (Negative); Ehrlichia muris eauclairensis Negative (Negative)
[2021-06-26 06:21] LABS: Hematocrit 48 % (42-52); Mean Corpuscular HGB Conc 35 g/dL (31-36); Mean Corpuscular Hemoglobin 30 pg (27-31); Mean Corpuscular Volume 86 fL (80-94); Mean Platelet Volume 9.1 fL (7.4-10.4); Platelet Count 166 10^3/uL (150-450); Red Cell Distribution Width 14 % (10-15); White Blood Count 3.3 10^3/uL (3.5-10.8)
[2021-06-26 06:38] LABS: Calcium 9.5 mg/dL (8.6-10.3); EGFR African American 106.6 (>60); EGFR Non-African American 88.1 (>60); Magnesium 1.9 mg/dL (1.9-2.7); Potassium 4.1 mmol/L (3.5-5.0)
[2021-06-26] MEDS: Ondansetron 4 mg VIAL 2 MG/ML 2 ml VIAL IV PRN ×4 (07:53→20:59)
[2021-06-26] MEDS: DULoxetine DR 60 mg CAP PO SCH (07:53)
[2021-06-26] MEDS: oxyCODONE/Acetamin 5/325 mg TAB PO PRN ×2 (07:54→16:28)
[2021-06-26] MEDS: PTO: Brimonidine 0.2% 5 ML BTL BOTH EYES SCH ×2 (08:03→21:07)
[2021-06-26] MEDS: PTO: Dorzolamide/Timolol OPTH (NF) 10 ML BOT BOTH EYES SCH ×2 (08:04→21:18)
[2021-06-26] MEDS ORDERED: NS 0.9% 1000 ml BAG 1,000 ML IV ONE (08:46)
[2021-06-26] MEDS ORDERED: Insulin GLARGINE 100 un/ml 10 ml VIAL SUBCUT SCH (09:00)
[2021-06-26 10:28] LABS: CSF Angiotension Conv Enz <0.4 U/L (0.0-2.5)
[2021-06-26 14:29] LABS: B. garinii/B. afzellii PCR Negative (Negative); Lyme Disease Source CSF
[2021-06-26] MEDS: [UNRECOGNIZED DRUG - MIXTURE] IV SCH (19:25)
[2021-06-26] MEDS: PTO: Latanoprost 0.005% 2.5 ml BTL BOTH EYES SCH (21:12)
[2021-06-26] MEDS: Enoxaparin 40 MG/0.4 ML SYR SUBCUT SCH (21:40)
[2021-06-26] MEDS: cefTRIAXone 2 GM ADDV.VIAL 2 GM in NS 0.9% 100 ml BAG 100 ML IV SCH (21:41)
[2021-06-27 05:58] LABS: Hematocrit 49 % (42-52); Hemoglobin 16.8 g/dL (14.0-18.0); Mean Corpuscular HGB Conc 34 g/dL (31-36); Mean Corpuscular Hemoglobin 30 pg (27-31); Mean Corpuscular Volume 86 fL (80-94); Mean Platelet Volume 9.3 fL (7.4-10.4); Platelet Count 165 10^3/uL (150-450); Red Blood Count 5.68 10^6 /uL (4.18-5.48); Red Cell Distribution Width 14 % (10-15); White Blood Count 3.6 10^3/uL (3.5-10.8)
[2021-06-27 06:11] LABS: Calcium 9.3 mg/dL (8.6-10.3); Magnesium 1.8 mg/dL (1.9-2.7); Potassium 3.9 mmol/L (3.5-5.0)
[2021-06-27 06:16] LABS: EGFR African American 114.1 (>60); EGFR Non-African American 94.3 (>60); Phosphorus 2.8 mg/dL (2.5-5.0)
[2021-06-27] MEDS: Ondansetron 4 mg VIAL 2 MG/ML 2 ml VIAL IV PRN ×2 (08:29→20:21)
[2021-06-27] MEDS: DULoxetine DR 60 mg CAP PO SCH (08:29)
[2021-06-27] MEDS: oxyCODONE/Acetamin 5/325 mg TAB PO PRN ×2 (08:29→20:08)
[2021-06-27] MEDS: PTO: Brimonidine 0.2% 5 ML BTL BOTH EYES SCH ×2 (08:30→20:46)
[2021-06-27] MEDS: PTO: Dorzolamide/Timolol OPTH (NF) 10 ML BOT BOTH EYES SCH ×2 (08:30→20:47)
[2021-06-27] MEDS ORDERED: Aspirin EC 81 mg TAB.EC (enteric coated) PO SCH (09:00)
[2021-06-27 18:06] LABS: Anti-Glial/Neuronal Nuc Ab-1 A Negative titer (<1:240); Anti-Neuronal Nuclear Ab Type1 Negative titer (<1:240); Anti-Neuronal Nuclear Ab Type2 Negative titer (<1:240); Anti-Neuronal Nuclear Ab Type3 Negative titer (<1:240); CRMP-5 IgG Antibody Negative titer (<1:240); Purkinje Cell Cytoplasm Typ Tr Negative titer (<1:240); Purkinje Cell Cytoplasm Type 1 Negative titer (<1:240); Purkinje Cell Cytoplasm Type 2 Negative titer (<1:240)
[2021-06-27 18:06] LABS: AGNA-1, CSF Negative titer (<1:2); Amphiphysin Ab, CSF Negative titer (<1:2); CRMP-5-IgG, CSF Negative titer (<1:2); PCA-1, CSF Negative titer (<1:2); PCA-2, CSF Negative titer (<1:2); PCA-Tr, CSF Negative titer (<1:2)
[2021-06-27] MEDS: [UNRECOGNIZED DRUG - MIXTURE] IV SCH (19:55)
[2021-06-27] MEDS: Enoxaparin 40 MG/0.4 ML SYR SUBCUT SCH (20:13)
[2021-06-27] MEDS: PTO: Latanoprost 0.005% 2.5 ml BTL BOTH EYES SCH (20:47)
[2021-06-27 21:41] VITALS: BP 164/96
[2021-07-01 08:46] LABS: Vitamin B2 Level 13 mcg/L (1-19)
[2021-07-01 16:44] LABS: Asialo GM1 IgG Antibody Negative (Negative); Asialo GM1 IgM Antibody Negative (Negative); Disialo GD1b IgG Antibody Negative (Negative); Disialo GD1b IgM Antibody Negative (Negative); Monosialo GM1 IgG Antibody Negative (Negative); Monosialo GM1 IgM Antibody Negative (Negative)
[2021-07-04 02:22] LABS: Pyridoxal 5-Phosphate (PLP), P 3 mcg/L (5-50)
== END 2021-06-27 22:05 | disposition home or self-care (01) | DRG 74 ==
LOC: ED 09:21 → MED 17:38
PROVIDERS: ADMIT Internal Medicine; ATTEND Hospitalist

== ENCOUNTER 2024-12-22 13:03 | Observation (INO) ==
[2024-12-22 18:33] LABS: ABS Basophils 0.1 10^3/uL (0.0-0.1); ABS Eosinophils 0.2 10^3/uL (0.0-0.5); ABS Lymphocytes 1.8 10^3/uL (1.0-4.8); ABS Monocytes 0.5 10^3/uL (0.0-1.1); ABS Nucleated RBC 0.01 10^3/ul; Eosinophil % 3.4 %; Hematocrit 50.3 % (38-53); Hemoglobin 17.3 g/dL (13.2-16.3); Lymphocyte % 27.3 %; Mean Corpuscular Hemoglobin 29.6 pg (27-33); Mean Corpuscular Hgb Conc 34.3 g/dL (31-36); Mean Corpuscular Volume 86.1 fL (80-97); Mean Platelet Volume 8.9 fL (7.5-11.2); Nucleated Red Blood Cells % 0.1 %/100WBC (0.0-0.8); Platelet Count 167 10^3/uL (150-450); Red Blood Count 5.84 10^6/uL (4.06-5.63); Red Cell Distribution Width 15.1 % (12-17); White Blood Count 6.5 10^3/uL (3.6-10.2)
[2024-12-22 18:44] LABS: Urine Appearance Clear; Urine Bilirubin Negative (Negative); Urine Blood Negative (Negative); Urine Color Light-Yellow; Urine Glucose Negative (Negative); Urine Ketones Negative (Negative); Urine Nitrite Negative (Negative); Urine Protein 1+ (>=30 mg/dL) (Negative); Urine Specific Gravity 1.014 (1.002-1.030); Urine Urobilinogen Negative (Negative)
[2024-12-22 18:45] LABS: Urine Bacteria Absent /HPF (Absent); Urine Red Blood Cell Trace(0-2/hpf) /HPF (0-Trace); Urine White Blood Cell Trace(0-5/hpf) /HPF (0-Trace)
[2024-12-22 18:51] LABS: INR 1.04 (0.85-1.14)
[2024-12-22 18:52] LABS: Albumin 4.2 g/dL (3.5-5.7); Albumin/Globulin Ratio 1.9 (1-3); Calcium 10.9 mg/dL (8.6-10.3); Creatinine, Serum 1.07 mg/dL (0.67-1.17); Globulin 2.2 g/dL (2-4); Potassium 4.4 mmol/L (3.5-5.0); Total Bilirubin 0.7 mg/dL (0.2-1.0); Total Protein 6.4 g/dL (6.4-8.9); eGFR CKD-EPI 75.6 (>60)
[2024-12-22] MEDS: Iodixanol 320 (CONTRAST) 100 ML SDV IV ONE (19:42)
[2024-12-22 20:30] LABS: High Sensitivity Troponin 1 Hr 6 pg/mL (<20)
[2024-12-22] MEDS ORDERED: Sulfur Hexaflouride MICROSPHR 25 MG VIAL IV PRN (21:37)
[2024-12-22] MEDS ORDERED: Dextrose 50% Syringe 50 ml 25 GM/50 ML SYRINGE IV PUSH PRN (23:01)
[2024-12-22] MEDS ORDERED: hydrALAZINE 20 mg/ml 1 ML Vial IV IV SLOW PU PRN (23:52)
[2024-12-23] MEDS: Insulin GLARGINE 100 un/ml 10 ml VIAL SUBCUT SCH ×2 (00:25→00:35)
[2024-12-23] MEDS: Enoxaparin 40 MG/0.4 ML SYR SUBCUT ONE (00:32)
[2024-12-23] MEDS: Latanoprost 0.005% 2.5 ml BTL BOTH EYES SCH (00:35)
[2024-12-23 05:13] LABS: HDL Cholesterol 37.4 mg/dL
[2024-12-23 05:25] LABS: Calcium (PTH Intact) 10.4 mg/dL (8.6-10.3)
[2024-12-23 05:42] LABS: Vitamin D Total 25(OH) 14.7 ng/mL (20-50)
[2024-12-23 06:27] LABS: Hematocrit 48.6 % (38-53); Hemoglobin 16.7 g/dL (13.2-16.3); Mean Corpuscular Hemoglobin 29.2 pg (27-33); Mean Corpuscular Hgb Conc 34.3 g/dL (31-36); Mean Corpuscular Volume 85.3 fL (80-97); Red Cell Distribution Width 15.1 % (12-17); White Blood Count 6.5 10^3/uL (3.6-10.2)
[2024-12-23 06:31] LABS: Calcium 9.7 mg/dL (8.6-10.3); Creatinine, Serum 1.11 mg/dL (0.67-1.17); Potassium 4.2 mmol/L (3.5-5.0); eGFR CKD-EPI 72.3 (>60)
[2024-12-23 07:37] LABS: Giant Platelets Present; Mean Platelet Volume 9.1 fL (7.5-11.2); Platelet Count 179 10^3/uL (150-450)
[2024-12-23] MEDS: DULoxetine DR 60 mg CAP PO SCH (08:25)
[2024-12-23] MEDS: CMCS: Dorzolamide/Timolol OPTH (NF) 10 ML BOT BOTH EYES SCH (08:25)
[2024-12-23 09:43] VITALS: BP 118/78
[2024-12-23] MEDS ORDERED: Enoxaparin 40 MG/0.4 ML SYR SUBCUT SCH (21:00)
== END 2024-12-23 11:54 | disposition home or self-care (01) ==
LOC: EDHOLD 13:03 → ED 13:03 → SUATTDRO 21:37 → MEDTELE 23:08
PROVIDERS: ADMIT Student in an Organized Health Care Education/Training Program; ATTEND Student in an Organized Health Care Education/Training Program